=== PATIENT | female | born 1950 | race Caucasian/White ===

== ENCOUNTER 2025-08-03 11:03 | Outpatient (RCR) | payer MEDICARE, SELFPAY | END 2025-08-03 11:38 | disposition home or self-care (01) | LOC: HO.PT 11:03 | PROVIDERS: PCP Nurse Practitioner Adult Health; Visit Provider Nurse Practitioner Adult Health | DX: N94.10 Unspecified dyspareunia (principal); N95.2 Postmenopausal atrophic vaginitis | CPT/HCPCS: 97112; 97140; 97162 ==

== ENCOUNTER 2025-11-08 15:08 | Outpatient (AMB) | payer MEDICARE, SELFPAY ==
--- NOTE | 2025-11-08 15:21 | A.OFFPC_ITS ---
Vital Signs 11/08/25 15:24 Height 5 ft 4 in Weight 120 lb 2 oz BMI 20.6 BP 130/64 Blood Pressure Location Lt brachial Position Sitting Pulse 77 Pulse Source Pulse Oximeter Temp 97.5 F Temp Source Temporal Artery Scan Pulse Oximetry (%) 98 Oxygen Delivery Method Room Air Intake Visit Reasons: High Cholesterol/ Pace Maker Accompanied by: Spouse Allergies sulfamethoxazole (From Bactrim) Allergy (Intermediate, Verified 11/08/25 15:25) Rash trimethoprim (From Bactrim) Allergy (Intermediate, Verified 11/08/25 15:25) Rash Medication List - Last Reconciled 11/08/25 by Elina Juarez MD verapamil ER 240 mg PO DAILY Tobacco use date assessed: 11/08/25 Fall risk assessment: 1 Fall in past year Last assessed Fall Risk: 11/08/25 Dental Screening Dental Screen Date: 11/08/25 Did you have a dental visit in the last 12 months?: Yes Did you have a dental problem in the last 6 months where you did not have access to dental care?: No Was dental information given to patient?: Patient has dentist HPI HPI Comments History of Present Illness Details Patient is a 75-year-old female, accompanied by her presenting to on license of [facility] care. The patient reports a history of osteoporosis and previously took strontium, but she discontinued it due to concerns about its recommendations. She has an aversion to other osteoporosis medications like Boniva and Fosamax. Her last DEXA scan was in 2021. She reports being physically active with heavy lifting and weight-bearing exercise, and she has had two falls on ice in the past year without any fractures. Her cardiac history is significant for an pacemaker, which was originally placed in November 2011 and recently replaced. 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 She reports some shortness of breath, which she attributes to anxiety, and denies chest pain. Her mother also had aortic stenosis requiring open-chest surgery. The patient reports a history of hyperlipidemia, with a total cholesterol of 260 a year ago that has since improved to 214 without medication. Blood work from September revealed an LDL of 114 and a high HDL of 91. She has a history of migraines, for which she takes verapamil daily for prevention. She has a history of smoking for 10 years and quit at age 23. She reports reflux managed with as-needed antacids. The patient reports ongoing fatigue and feeling overwhelmed due to significant personal stressors, including her 's medical and cognitive issues and her sister's health problems. She endorses feeling down, loss of interest, and trouble sleeping. Her current supplements include calcium, vitamin D 1000 IU, active B complex, glucosamine, L-tyrosine, and magnesium. She is up-to-date on her flu, pneumonia, and shingles vaccinations, with her last COVID-19 vaccine received in 2022. [facility] Surgical History (Updated 11/08/25 @ 16:37 by Elina Juarez MD) H/O section Family History (Updated 11/08/25 @ 15:29 by Radha Toth CMA) Mother Hypertension Sister Breast cancer Hypertension Mental health disorder Substance use Social History (Updated 11/08/25 @ 15:26 by Radha Toth CMA) Household Members: Spouse Housing: House Alcohol intake: never Patient Tobacco Use Status: Former Tobacco user e-Cigarette/Vaping Use: Never Used service: No Current occupational status: retired Cognitive needs: No Hearing needs: No Vision needs: Yes Questionnaire PHQ-9 Over the last 2 weeks, how often have you been bothered by any of the following problems? 1. Little interest or pleasure in doing things: several days 2. Feeling down, depressed, or hopeless: several days 3. Trouble falling or staying asleep, or sleeping too much: several days 4. Feeling tired or having little energy: several days 5. Poor appetite or overeating: not at all 6. Feeling bad about yourself - or that you are a failure or have let yourself or your family down: several days 7. Trouble concentrating on things, such as reading the newspaper or watching television: not at all 8. Moving or speaking so slowly that other people could have noticed. Or the opposite - being so fidgety or restless that you have been moving around a lot more than usual: not at all 9. Thoughts that you would be better off or of hurting yourself in some way: not at all Total score: 5 Depression Screening Interpretation: Positive Depression Screening Done: Yes 40527 - PHQ-9 Billing: Yes Source: Developed by Drs. Hayden Morrow, Yobany Carter and colleagues, with an educational flaca from [employer]. Thrive Questionnaire Date Thrive assessed: 11/08/25 I am a: Patient What is your living situation today?: I have a steady place to live Within the past 12 months, did the food you bought not last and you didn't have the money to get more?: Never true Within the past 12 months, did you worry whether your food would run out before you got money to buy more?: Never true Do you have trouble paying for medicines?: No Do you have trouble getting transportation to medical appointments?: No Do you have trouble paying your heating and electricity bill?: No Do you have trouble taking care of your child, family member or friend?: No Do you have trouble with day-to-day activities such as bathing, preparing meals, shopping, managing finances, etc.?: No Are you currently unemployed and looking for a job?: No Are you interested in more education?: No Please select the resources that you would like help with: None Currently or been in a relationship where the following occur: No concerns reported THRIVE Score: 0 AUDIT C Alcohol Use Questionnaire (AUDIT-C) 1. How often do you have a drink containing alcohol?: Never 3. How often do you have six or more drinks on one occasion?: Never Total Score: 0 COURTNEY-7 AMB Questionnaire COURTNEY-7 Date COURTNEY - 7 assessed: 11/08/25 Feeling nervous, anxious, or on edge: 1 = Several days Not being able to stop or control worryin = Several days Worrying too much about different things: 1 = Several days Trouble relaxin = Several days Being so restless that it is hard to sit still: 1 = Several days Becoming easily annoyed or irritable: 1 = Several days Feeling afraid as if something awful might happen: 1 = Several days Total COURTNEY-7 score (0-4 normal; 5-9 mild; 10-14 moderate; 15-21 severe): 7 Source: Developed by Drs. Hayden Morrow, Yobany Carter and colleagues, with an educational flaca from [employer]. COURTNEY-7 Assessment Billing COURTNEY-7 Assessment Tool: COURTNEY-7 Assessment 35888 Physical exam (Primary Care) Vital Signs: Last Vital Signs Temp 97.5 F 11/08/25 15:24 Pulse 77 11/08/25 15:24 BP 130/64 11/08/25 15:24 Pulse Ox 98 11/08/25 15:24 Oxygen Delivery Method Room Air 11/08/25 15:24 General: Well-appearing, alert, oriented ?3, in no acute distress. HEENT: Normocephalic, atraumatic, PERRLA, EOMI, no scleral icterus. Nares patent, normal mucosa pink, no discharge. No oral lesions, or pharyngeal erythema. Neck Supple. Cardiovascular: Regular rate and rhythm, S1-S2 appreciated, systolic murmur appreciated at right 2nd intercostal space, radiating to carotids. Pacemaker noted in the right chest. Respiratory: Lungs clear to auscultation bilaterally, no wheezes, rales or rhonchi. Abdomen: Soft, nontender, nondistended. Normoactive bowel sounds. BMI result Body Mass Index 20.6 Tobacco/Smoking Status: Tobacco use Status Tobacco use date assessed 11/08/25 11/08/25 15:31 Patient Tobacco Use Status Former Tobacco user 11/08/25 15:31 e-Cigarette/Vaping Use Never Used 11/08/25 15:31 PHQ-9: PHQ-9 Score PHQ-9: Total score 5 11/08/25 15:31 Depression Screening Interpretation: Positive Thrive Assessment: Date of Thrive Assessment Date Thrive assessed 11/08/25 11/08/25 15:31 Currently or been in a relationship where the following occur: No concerns reported Coding Level of Care Code New Pt Level 4 (28499) Diagnoses Osteoporosis without current pathological fracture, unspecified osteoporosis type M81.0 Osteoporosis type: unspecified Presence of current pathological fracture: without current pathological fracture Migraine without status migrainosus, not intractable, unspecified migraine type G43.909 Migraine type: unspecified Status migrainosus presence: without status migrainosus Intractability: not intractable Aortic valve stenosis, etiology of cardiac valve disease unspecified I35.0 Cardiac valve disease etiology: etiology unspecified Anxiety F41.9 Additional Codes COURTNEY-7 Assessment Billing - COURTNEY-7 Assessment Tool: COURTNEY-7 Assessment 32633 ([id number]) PHQ-9 - 71993 - PHQ-9 Billing: Yes ([id number]) Assessment & Plan Assessment & Plan (1) Osteoporosis: Code(s): M81.0 - Age-related osteoporosis without current pathological fracture Category: Medical Qualifiers: Osteoporosis type: unspecified Presence of current pathological fractur e: without current pathological fracture Qualified Code(s): M81.0 - Age-related osteoporosis without current pathological fracture Plan: Patient reports previously took strontium, but she discontinued it due to concerns about recommendation. She is not interested in medications at this time. Reports she is taking calcium 1200 mg and vitamin-D 1000 units daily. She reports being physically active with heavy lifting and weight-bearing exercise. Her last DEXA scan was in 2021. Repeat DEXA scan (2) Migraine: Code(s): G43.909 - Migraine, unspecified, not intractable, without status migrainosus Category: Medical Qualifiers: Migraine type: unspecified Status migrainosus presence: without status migrainosus Intractability: not intractable Qualified Code(s): G43.909 - Migraine, unspecified, not intractable, without status migrainosus Plan: On verapamil 240 daily for prophylaxis (3) Aortic stenosis: Code(s): I35.0 - Nonrheumatic aortic (valve) stenosis Category: Medical Qualifiers: Cardiac valve disease etiology: etiology unspecified Qualified Code(s): I35.0 - Nonrheumatic aortic (valve) stenosis Plan: Patient has a history of aortic stenosis, follows with puppet maker in [place]. Reportedly had a recent echocardiogram with a plan to repeat it in February 2026, and reports she was told she may need surgery. (4) Anxiety: Code(s): F41.9 - Anxiety disorder, unspecified Category: Medical Plan: The patient reports significant psychosocial stressors contributing to symptoms of anxiety, depressed mood, and fatigue. She has declined pharmacotherapy at this time. She is interested in therapy, referral provided. Orders: Orders Complete Blood Count Auto Diff Today Z00.00 - Encounter for general adult medical examination without abnormal findings Hemoglobin A1c Today Z13.1 - Encounter for screening for diabetes mellitus Hepatitis C Antibody Today Z11.59 - Encounter for screening for other viral diseases Ferritin Today R53.83 - Other fatigue XR DEXA axial skeleton Today M81.0 - Age-related osteoporosis without current pathological fracture Comprehensive Met. Panel Today Z00.00 - Encounter for general adult medical examination without abnormal findings Vitamin D 25-OH (D2 and D3) Today Z13.21 - Encounter for screening for nutritional disorder IRON PROFILE Today R53.83 - Other fatigue Referrals Counseling Referral F32.A - Depression, unspecified, F41.9 - Anxiety disorder, unspecified
[2025-11-08 15:24] VITALS: BP 130/64; PULSE 77; TEMP 36.4; O2SAT 98; BMI 20.6
--- OUTSIDE RECORDS SUMMARY | 2025-11-08 17:23 | XMS_ITS | Encounter Summary ---
Author Organization [facility] Address [address] [place] [address] [place] [phone] Phone Care Team Providers Care Svp Programmatic Tv Name Role Phone Alex Dorman MD Unavailable Christa Barros NP Unavailable [phone] Maryanne Gresham Unavailable [email or web address] Anahy Cisneros BUSHEL WORKER Unavailable [phone] Ambrosio Navas MD Unavailable [phone] Leonel Haider RUBBER TESTER Unavailable Yancy Rees MD Unavailable [phone] Rambo Perez MD Unavailable [phone] Christa Barros NP Primary Care Provider + Ambrosio Navas MD Unavailable [phone] Ambrosio Navas MD Primary Care Provider [phone] Unknown, Unknown Primary Care Provider UnaChrista Sheppard NP Primary Care Provider + Christa Barros NP Primary Care Provider + Encounter Details Date Type Department Care Team (Late st Contact Info) Description 05/03/2020 Ancillary Orders [facility] [address] [place] [address] Alex Dorman MD [address] [place] [address] [email or web address] Syncope and collapse Social History Tobacco Use Types Packs/Day Years Used Date Smoking Tobacco: Former Smokeless Tobacco: Former Comments:Quit at age 23. Alcohol Use Standard Drinks/Week Comments Yes 4 (1 standard drink = 0.6 oz pur e alcohol) Comments No Sex and Gender Information Value Date Recorded Sex Assigned at Female 08/18/2020 12:21 PM EDT Legal Sex Female 5:37 PM EST Gender Identity Female 08/18/2020 12:21 PM EDT Sexual Orientation Don't know 08/25/2024 12 :10 PM EDT documented as of this encounter Plan of Treatment Upcoming Encounters Date Type Department Care Team (Late st Contact Info) Description 10/05/2025 Procedure Pass [facility] [address] [place] [address] 02/14/2026 1:45 PM EDT Appointment [facility] [address] [place] [address] Taz Nair MD [address] [place] [phone] [email or web address] 03/16/2026 11:40 AM EDT Office Visit [facility] [address] [place] [address] [address] Floor, [address] [place] [address] Taz Nair MD [address] [place] [address] documented as of this encounter Results * DEVICE CHECK: PPM IN-HOME INTERROGATION (08/18/2020 2:55 PM EDT) Narrative Alex Dorman MD - 08/19/2020 4:12 PM EDT Reason for appointment: Remote pacemaker interrogation HPI: Routine 3 month remote pacemaker interrogation. No device related complaints. Indication for device: Syncope. Examination: Device type: Pacemaker Airport Screener: [employer] Mode: DDDR LRL/UPL: 50/150 bpm Mode switches: 13 brief, < 1 min in duration High V rates: 2 brief AT Thresholds, impedances, and sensing stable. Atrial pacin.8% Ventricular pacin% Battery: 3 yrs Additional comments: Device functioning appropriately. Patient presented to [facility] today for c/o tachycardia, no events since May noted Normal device function. Patient to follow-up for continued monitoring every 3 months. Report prepared by Fly Atkins RN us Alex Dorman MD [facility] ORDER MALIKA Final Result documented in this encounter Visit Diagnoses Diagnosis Syncope and collapse Syncope and collapse documented in this encounter Additional Health Concerns Infection Onset Date Last Indicated Resolved Time CoV-Risk 06/27/2020 06/27/2020 07/11/2020 1:24 AM EDT CoV-Risk 03/16/2025 03/16/2025 03/27/2025 1:21 AM EDT documented as of this encounter Care Teams Svp Programmatic Tv Relationship Specialty Start Date End Date Christa Barros NP [address] [place] [address] PCP - General Internal Medicine 10/24/18 06/19/21 Ambrosio Navas MD [address] [place] [phone] PCP - General Internal Medicine 06/20/21 01/29/22 Unknown, Nam, PCP - General 01/30/22 01/06/24 Christa Barros NP [address] [place] [address] PCP - General Internal Medicine 01/07/24 02/15/25 Christa Barros, RASHAWN [address] [place] [address] [place] [phone] [email or web address] PCP - General Nurse Practitioner 02/16/25 Alex Dorman MD [email or web address] Historical LMR Provider 08/27/17 Christa Barros RUBBER TESTER [address] [place] [address] [place] [phone] [email or web address] Primary Care Physician 01/07/24 02/15/25 Maryanne Gresham PA [email or web address] Historical LMR Provider 08/27/17 11/18/21 Anahy Cisneros, JULIANNA [address] [place] [address] [place] [address] [email or web address] Historical LMR Provider 08/27/17 4 Ambrosio Navas MD [address] [place] [address] [place] [phone] [email or web address] Historical LMR Provider 08/27/17 4 Leonel Haider NP [address] [place] [address] [address] [place] [phone] Historical LMR Provider 08/27/17 2 Yancy Rees MD [address] [place] [address] Historical LMR Provider 08/27/17 2 Rambo Perez MD [address] [place] [address] Historical LMR Provider 08/27/17 Ambrosio Navas MD [address] [place] [address] [address] [place] [address] [email or web address] Insurance Assigned Provider Internal Medicine 09/30/19 01/06/24 documented as of this encounter Additional Source Comments The information contained in this document represents components of the legal health record. It is not the complete legal health record.[facility]
--- OUTSIDE RECORDS SUMMARY | 2025-11-08 17:23 | XMS_ITS | Encounter Summary ---
Author Organization [facility] Address [address] [place] [address] [place] [phone] Phone Care Team Providers Care Heavy Equipment Rental Manager Name Role Phone Ambrosio Navas MD Primary Care Provider [phone] Alex Dorman MD Unavailable [phone] Christa Barros NP Unavailable [phone] Maryanne Gresham [email or web address] Anahy Cisneros ACCOUNTING TEACHER Unavailable +[phone] Ambrosio Navas MD Unavailable +[phone] Leonel Haider MOSAIC TECHNICIAN Unavailable [phone] Yancy Rees MD Unavailable [phone] Rambo Perez MD Unavailable [phone] Christa Barros NP Primary Care Provider + Ambrosio Navas MD Unavailable [phone] Ambrosio Navas MD Primary Care Provider +[phone]- Unknown, Unknown Primary Care Provider Unavai Christa Phillips NP Primary Care Provider + Christa Barros NP Primary Care Provider + Encounter Details Date Type Department Care Team (Late Contact Info) Description 01/29/2018 Ancillary Orders [facility] [address] [facility] [address] [place] [address] Ambrosio Navas MD [address] [facility] [address] [place] [address] [email or web address] Breast screening Social History Tobacco Use Types Packs/Day Years Used Date Smoking Tobacco: Former Smokeless Tobacco: Former Comments:Quit at age 23. Alcohol Use Standard Drinks/Week Comments Yes 4 (1 standard drink = 0.6 oz pur e alcohol) Comments Unknown Sex and Gender Information Value Date Recorded [...] Procedure Pass [facility] [address] [place] [address] 02/14/2026 1:45 PM EDT Appointment [facility] [address] [place] [address] Taz Nair MD [address] [place] [address] 03/16/2026 11:40 AM EDT Office Visit [facility] [address], [address] [place] [address] Taz Nair MD [address] [place] [phone] documented as of this encounter Results * BI MAMMOGRAM SCREENING WITH TOMOSYNTHESIS WITH CAD (BILATERAL) (02/05/2018 2:14 PM EDT) Anatomical Region Laterality Modality Breast Left, Breast Right, Breast Bilateral Bila teral Mammography 02/05/2018 2:56 PM EDT Impressions 02/05/2018 3:01 PM EDT No findings suspicious for malignancy. In the absence of a worrisome palpable abnormality, annual screening mammography is recommended. BI-RADS CATEGORY: 2 - Benign finding. DENSITY: The breast tissue is heterogeneously dense, an appearance which lowers the sensitivity of mammography. POS [facility] Narrative 02/05/2018 3:01 PM EDT COMPARISON: 09/28/2013 through 07/23/2016. Bilateral 3-D tomosynthesis with 2-D reconstructions in the CC and MLO projection of each breast was obtained. Computer-aided detection system also utilized. No new mass, asymmetry, architectural distortion or suspicious calcifications have become apparent on either side. Chronic scattered calcifications unchanged as is limited evaluation of the deep right upper outer quadrant due to pacemaker. Procedure Note Taz Brian MD - 02/05/2018 COMPARISON: 09/28/2013 through 07/23/2016. Bilateral 3-D tomosynthesis with 2-D reconstructions in the CC and MLOprojection of each breast was obtained. Computer-aided detection systemalso utilized. No new mass, asymmetry, architectural distortion or suspiciouscalcifications have become apparent on either side. Chronic scattered calcifications unchanged as is limited evaluation ofthe deep right upper outer quadrant due to pacemaker. IMPRESSION: No findings suspicious for malignancy. In the absence of a worrisomepalpable abnormality, annual screening mammography is recommended. BI-RADS CATEGORY: 2 - Benign finding. DENSITY: The breast tissue is heterogeneously dense, an appearance whichlowers the sensitivity of mammography. POS [facility] Ambrosio Navas MD IMG MG EXAMS Final Result documented in this encounter Visit Diagnoses Diagnosis Breast screening Breast screening, unspecified Breast screening Breast screening, unspecified documented in this encounter Additional Health Concerns Infection Onset Date Last Indicated Resolved Time CoV-Risk 06/27/2020 06/27/2020 07/11/2020 1:24 AM EDT CoV-Risk 03/16/2025 03/16/2025 03/27/2025 1:21 AM EDT documented as of this encounter Care Teams Heavy Equipment Rental Manager Relationship Specialty Start Date End Date Ambrosio Navas MD [address] [place] [phone] [email or web address] PCP - General 08/26/17 10/23/18 Christa Barros NP [address] [place] [phone] [email or web address] PCP - General Internal Medicine 10/24/18 06/19/21 Ambrosio Navas MD [address] [place] [phone] [email or web address] PCP - General Internal Medicine 06/20/21 01/29/22 Unknown, Unknown, PCP - General 01/30/22 01/06/24 Christa Barros NP [address] [place] [phone] [email or web address] PCP - General Internal Medicine 01/07/24 02/15/25 Christa Barros NP [address] [place] [phone] [email or web address] PCP - General Nurse Practitioner 02/16/25 Alex Dorman MD [address] [place] [phone] [email or web address] Historical LMR Provider 08/27/17 Christa Barros NP [address] [place] [address] [place] [phone] [email or web address] Primary Care Physician 01/07/24 02/15/25 Maryanne Gresham PA Historical LMR Provider 08/27/17 11/18/21 Anahy Cisneros CNP [address] [place] [address] [place] [phone] [email or web address] Historical LMR Provider 08/27/17 4 Ambrosio Navas MD [address] [place] [phone] [email or web address] Historical LMR Provider 08/27/17 4 Leonel Haider NP [address] [place] [phone] Historical LMR Provider 08/27/17 2 Yancy Rees MD [address] [place] [address] Historical LMR Provider 08/27/17 2 Rambo Perez MD [address] [place] [address] Historical LMR Provider 08/27/17 Ambrosio Navas MD [address] [place] [phone] [email or web address] Insurance Assigned Provider Internal Medicine 09/30/19 01/06/24 documented as of this encounter Additional Source Comments The information contained in this document represents components of the legal health record. It is not the complete legal health record.[facility]
--- OUTSIDE RECORDS SUMMARY | 2025-11-08 17:23 | XMS_ITS | Encounter Summary ---
Author Organization [facility] Address [address] [place] [address] [place] [address] Phone Care Team Providers Care Fish Processor Name Role Phone Ambrosio Navas MD Primary Care Provider +1- Alex Dorman MD Unavailable [phone] Christa Barros NP Unavailable [phone] Maryanne Gresham Unavailable [email or web address] Anahy Cisneros PROFESSOR OF THEATRE Unavailable +1- Ambrosio Navas MD Unavailable +[phone] Leonel Haider CDL PROGRAM COORDINATOR Unavailable [phone] Yancy Rees MD Unavailable [phone] Rambo Perez MD Unavailable [phone] Christa Barros NP Primary Care Provider + Ambrosio Navas MD Unavailable +[phone] Ambrosio Navas MD Primary Care Provider +1- Unknown, Unknown Primary Care Provider Unavai Christa Phillips NP Primary Care Provider + Christa Barros NP Primary Care Provider + Reason for Referral * MRI/CAT Scan - Closed Specialty Diagnoses / Procedures Referred By Nba t Referred To Contact Radiology Diagnoses Chest pain, unspecified type Procedures NC Myocardial Perfusion Stress Single NC Myocardial Perfusion Pharmacologic Stress Multiple Leonel Haider NP Phone: tel: fax: Referral ID Status Reason Start Date Expiration Date Visits Re quested Visits Authorized [id number] Closed 12/12/2017 02/09/2018 1 1 Encounter Details Date Type Department Care Team (Latest Contact Info) Description 12/13/2017 Ancillary Orders [facility] [address] Floor, [address] [place] [address] Leonel Haider NP [address] [place] [address] [phone] Chest pain, unspecified type Social History Tobacco Use Types Packs/Day Years Used Date Smoking Tobacco: Never Assessed Comments Unknown Sex and Gender Information Value [...] 10/05/2025 Procedure Pass [facility] [address] [address] [place] [address] 02/14/2026 1:45 PM EDT Appointment [facility] [address] [address] Taz Nair MD [address] [place] [address] 03/16/2026 11:40 AM EDT Office Visit [facility] [address] Floor, [address] [place] [address] Taz Nair MD [address] [place] [address] [email or web address] documented as of this encounter Results * NC Myocardial Perfusion Stress Single (12/13/2017 11:31 AM EST) Anatomical Region Laterality Modality Heart Ultrasound Narrative 12/23/2017 3:33 PM EST Normal study. There is no evidence of myocardial infarction or ischemia. Normal LV size and function with no regional wall motion abnormalities. Very low likelihood of hemodynamically significant coronary artery disease. Low risk study for myocardial events or cardiac in the next two years. Study Quality Overall image quality is good. There are no artifacts present. NC Study Impression Left ventricular perfusion is normal. Interpretation of the study indicates that it is normal. This is a low risk study. There is no prior study for comparison. Stress Test Result REGADENOSON Exercise Stress Test Report: Reason for termination: Protocol complete Summary: Resting ECG: V-Paced HR 72 with underlying rhythm of SR with LBBB Functional capacity: Not assessed Heart rate response to exercise: Not assessed Blood pressure response to exercise: Hypertensive Chest pain:None Arrhythmias:None ST-T changes:None Overall impression: Abnormal stress test Conclusion: Pharmacologic stress test. Patient unable to complete test on TM due dizziness and request to stop. The patient was infused with 0.4 mg of Regadenoson (Lexiscan) intravenously over 10 seconds followed immediately by the injection of the Tc99m Sestamibi. Patient tolerated Lexiscan infusion without complications. Test terminated due to completion of protocol. Summary: 1. EKG: No EKG changes suggestive of ischemia 2. Symptoms: No chest pain or symptoms concerning for angina. Pt with symptoms of dizziness 3. Exercise physiology: Pt was able to exercise a total of 5:11 minutes reaching a max bp of 200/80 from baseline 150/70. 4. Arrhythmia: None Conclusion: Abnormal pharmacologic stress test. No ischemic EKG changes from baseline with pharmacologic protocol. The patient was converted over to Lexiscan protocol after beginning routine exercise test, noted to be hypertensive, feeling dizzy and requesting to stop. She has been set up to follow up in the pacemaker clinic and will follow up in the office for HTN. Patient hemodynamically stable at completion of exam. Nuclear image results pending. EKG reviewed with Dr. López. Tiffanie Rutherford NP Nuclear Cardiology Measurements End systolic (mL): 16 End diastolic (mL): 64 Ejection Fraction (%): 75 Ejection Fraction: Hyperdynamic (>70%) The left ventrical is functioning with normal perfusion quality. Patient was injected with 12.1mCi of Tc99m Sestamibi Lt AC IV during stress NC Conclusion Normal study. There is no evidence of myocardial infarction or ischemia. Normal LV size and function with no regional wall motion abnormalities. Very low likelihood of hemodynamically significant coronary artery disease. Low risk study for myocardial events or cardiac in the next two years. Perfusion Scoring Stress Summed Score: 0 Percent Normal: 0.00% The left ventricular perfusion is normal. Leonel Haider NP CV NM CARDIAC Final Result documented in this encounter Visit Diagnoses Diagnosis Chest pain, unspecified type Chest pain, unspecified type documented in this encounter Additional Health Concerns Infection Onset Date Last Indicated Resolved Time CoV-Risk 06/27/2020 06/27/2020 07/11/2020 1:24 AM EDT CoV-Risk 03/16/2025 03/16/2025 03/27/2025 1:21 AM EDT documented as of this encounter Care Teams Fish Processor Relationship Specialty Start Date End Date Ambrosio Navas MD [address] [place] [address] [place] [address] [email or web address] PCP - General 08/26/17 10/23/18 Christa Barros NP [address] [place] [address] [place] [address] PCP - General Internal Medicine 10/24/18 06/19/21 Ambrosio Navas MD [address] [place] [address] [place] [address] PCP - General Internal Medicine 06/20/21 01/29/22 Unknown, Unknown, PCP - General 01/30/22 01/06/24 Christa Barros NP [address] [place] [address] [email or web address] PCP - General Internal Medicine 01/07/24 02/15/25 Christa Barros NP [address] [place] [address] [email or web address] PCP - General Nurse Practitioner 02/16/25 Alex Dorman MD [address] [place] [address] [email or web address] Historical LMR Provider 08/27/17 Christa Barros NP [address] [place] [address] [email or web address] Primary Care Physician 01/07/24 02/15/25 Maryanne Gresham PA Historical LMR Provider 08/27/17 11/18/21 Anahy Cisneros CNP [address] [place] [address] [email or web address] Historical LMR Provider 08/27/17 4 Ambrosio Navas MD [address] [place] [address] [email or web address] Historical LMR Provider 08/27/17 4 Leonel Haider NP [address] [place] [address] [address] [place] [phone] Historical LMR Provider 08/27/17 2 Yancy Rees MD [address] [place] [address] Historical LMR Provider 08/27/17 2 Rambo Perez MD [address] [place] [address] Historical LMR Provider 08/27/17 Ambrosio Navas MD [address] [place] [address] [address] [place] [address] [email or web address] Insurance Assigned Provider Internal Medicine 09/30/19 01/06/24 documented as of this encounter Additional Source Comments The information contained in this document represents components of the legal health record. It is not the complete legal health record.[facility]
--- OUTSIDE RECORDS SUMMARY | 2025-11-08 17:23 | XMS_ITS | Encounter Summary ---
Author Organization [facility] Address [address] [facility] [address] [place] [address] Phone Care Team Providers Care Corporate Tutor Name Role Phone Alex Dorman MD Unavailable Christa Barros NP Unavailable [phone] Maryanne Gresham Unavailable [email or web address] Anahy Cisneros MANAGER FRAUD Unavailable [phone] Ambrosio Navas MD Unavailable +[phone] Leonel Haider REFINERY OPERATOR GAS PLANT Unavailable [phone] Yancy Rees MD Unavailable [phone] Rambo Perez MD Unavailable Christa Barros NP Primary Care Provider + Ambrosio Navas MD Unavailable +[phone] Ambrosio Navas MD Primary Care Provider [phone] Unknown, Unknown Primary Care Provider UnaChrista Sheppard NP Primary Care Provider + Christa Barros NP Primary Care Provider + Encounter Details Date Type Department Care Team (Late st Contact Info) Description 02/21/[address] [facility] [address] [facility] [address] [place] [address] Christa Barros, RASHAWN 14 [facility] [address] [place] [address] [email or web address] Breast screening Social History Tobacco Use Types Packs/Day Years Used Date Smoking Tobacco: Former Smokeless Tobacco: Former Comments:Quit at age 23. Alcohol Use Standard Drinks/Week Comments Yes 4 (1 standard drink = 0.6 oz pur e alcohol) one drink nightly Comments No Sex and Gender Information Value [...] Pass [facility] [address] [place] [address] 02/14/2026 1:45 PM EDT Appointment [facility] [place] [id number] Taz Nair MD [address] [place] [address] 03/16/2026 11:40 AM EDT Office Visit [facility] [address], [address] [place] [address] Taz Nair MD [address] [place] [address] documented as of this encounter Results * BI MAMMOGRAM SCREENING WITH TOMOSYNTHESIS WITH CAD (BILATERAL) (03/22/2021 12:05 PM EDT) Anatomical Region Laterality Modality Breast Left, Breast Right, Breast Bilateral Bila teral Mammography 03/22/2021 12:1 8 PM EDT Impressions 03/22/2021 12:21 PM EDT BILATERAL BREASTS: Negative, no evidence of malignancy. Normal interval follow- up is recommended in 12 months. Bi-RADS: BI-RADS CATEGORY: 1 - Negative. DENSITY: The breast tissue is heterogeneously dense, which could obscure a lesion on mammography. Narrative 03/22/2021 12:21 PM EDT STUDY: Bilateral screening mammography with tomosynthesis and CAD TECHNIQUE: Bilateral full-field digital screening mammography is obtained and read in conjunction with computer-aided detection. Tomosynthesis as well as 2-D C view imaging were obtained. COMPARISON: Comparison made to multiple prior, most recent February 11, 2019, and most remote September 28, 2013. BREAST COMPOSITION: The breast tissue is heterogeneously dense, which may obscure small masses. RIGHT BREAST: Pacemaker battery limits local evaluation. No significant masses, suspicious calcifications or other abnormalities are seen. LEFT BREAST: No significant masses, suspicious calcifications or other abnormalities are seen. Procedure Note Rudi Daniel MD - 03/22/2021 STUDY: Bilateral screening mammography with tomosynthesis and CAD TECHNIQUE: Bilateral full-field digital screening mammography is obtainedand read in conjunction with computer-aided detection. Tomosynthesis aswell as 2-D C view imaging were obtained. COMPARISON: Comparison made to multiple prior, most recent February 11, 2019,and most remote September 28, 2013. BREAST COMPOSITION: The breast tissue is heterogeneously dense, which mayobscure small masses. RIGHT BREAST: Pacemaker battery limits local evaluation. No significantmasses, suspicious calcifications or other abnormalities are seen. LEFT BREAST: No significant masses, suspicious calcifications or otherabnormalities are seen. IMPRESSION: BILATERAL BREASTS: Negative, no evidence of malignancy. Normal intervalfollow-up is recommended in 12 months. Bi-RADS: BI-RADS CATEGORY: 1 - Negative. DENSITY: The breast tissue is heterogeneously dense, which could obscurea lesion on mammography. Christa Barros REFINERY OPERATOR GAS PLANT IMG MG EXAMS Final Resu lt documented in this encounter Visit Diagnoses Diagnosis Breast screening Breast screening, unspecified Breast screening Breast screening, unspecified documented in this encounter Additional Health Concerns Infection Onset Date Last Indicated Resolved Time CoV-Risk 03/16/2025 03/16/2025 03/27/2025 1:21 AM EDT documented as of this encounter Care Teams Corporate Tutor Relationship Specialty Start Date End Date Christa Barros NP [address] [place] [address] [email or web address] PCP - General Internal Medicine 10/24/18 06/19/21 Ambrosio Navas MD [address] [place] [address] [email or web address] PCP - General Internal Medicine 06/20/21 01/29/22 Unknown, Unknown, MD PCP - General 01/30/22 01/06/24 Christa Barros NP [address] [place] [address] [email or web address] PCP - General Internal Medicine 01/07/24 02/15/25 Christa Barros NP [address] [place] [address] [email or web address] PCP - General Nurse Practitioner 02/16/25 Alex Dorman MD [email or web address] Historical LMR Provider 08/27/17 Christa Barros NP [address] [place] [address] [email or web address] Primary Care Physician 01/07/24 02/15/25 Maryanne Gresham PA Historical LMR Provider 08/27/17 11/18/21 Anahy CisnerosJULIANNA [address] [facility] [address] [place] [address] Historical LMR Provider 08/27/17 4 Ambrosio Navas MD 14 [facility] [address] [place] [address] [email or web address] Historical LMR Provider 08/27/17 4 Leonel Haider, RASHAWN [address] [place] [address] [phone] Historical LMR Provider 08/27/17 2 Yancy Rees MD [address] [place] [address] Historical LMR Provider 08/27/17 2 Rambo Perez MD [address] [place] [address] Historical LMR Provider 08/27/17 Ambrosio Navas MD 14 [facility] [address] [place] [address] [email or web address] Insurance Assigned Provider Internal Medicine 09/30/19 01/06/24 documented as of this encounter Additional Source Comments The information contained in this document represents components of the legal health record. It is not the complete legal health record.[facility]
--- OUTSIDE RECORDS SUMMARY | 2025-11-08 17:23 | XMS_ITS | Encounter Summary ---
Author Organization [facility] Address [address] [place] [address] [place] [address] Phone Care Team Providers Care Freelance Court Stenographer Name Role Phone Ambrosio Navas MD Primary Care Provider +1 Alex Dorman MD Unavailable [phone] Christa Barros NP Unavailable [phone] Maryanne Gresham Unavailable [email or web address] Anahy Cisneros INDUSTRIAL SWEEPER CLEANER Unavailable +1- Ambrosio Navas MD Unavailable +[phone] Leonel Haider FISHER QUAHOG Unavailable [phone] Yancy Rees MD Unavailable [phone] Rambo Perez MD Unavailable [phone] Christa Barros NP Primary Care Provider + Ambrosio Navas MD Unavailable +[phone] Ambrosio Navas MD Primary Care Provider +1- Unknown, Unknown Primary Care Provider Unavai Christa Phillips NP Primary Care Provider + Christa Barros NP Primary Care Provider + Encounter Details Date Type Department Care Team (Late st Contact Info) Description 03/06/2018 Ancillary Orders [facility] [address] [place] [address] Alex Dorman MD [address] [place] [address] [email or web address] Social History Tobacco Use Types Packs/Day Years [...] Procedure Pass [facility] [address] [place] [address] 02/14/2026 1:45 PM EDT Appointment [facility] [address] [place] [address] Taz Nair MD [address] [place] [address] 03/16/2026 11:40 AM EDT Office Visit [facility] [address] [facility] 3rd Floor, [address] [place] [address] Taz Nair MD [address] [place] [address] documented as of this encounter Visit Diagnoses Not on filedocumented in this encounter Additional Health Concerns Infection Onset Date Last Indicated Resolved Time CoV-Risk 06/27/2020 06/27/2020 07/11/2020 1:24 AM EDT CoV-Risk 03/16/2025 03/16/2025 03/27/2025 1:21 AM EDT documented as of this encounter Care Teams Freelance Court Stenographer Relationship Specialty Start Date End Date Ambrosio Navas MD [address] [place] [address] [email or web address] PCP - General 08/26/17 10/23/18 Christa Barros NP [address] [place] [address] [email or web address] PCP - General Internal Medicine 10/24/18 06/19/21 Ambrosio Navas MD [address] [place] [address] [email or web address] PCP - General Internal Medicine 06/20/21 01/29/22 Unknown, Unknown, PCP - General 01/30/22 01/06/24 Christa Barros NP [address] [place] [address] [email or web address] PCP - General Internal Medicine 01/07/24 02/15/25 Christa Barros NP [address] [place] [address] [email or web address] PCP - General Nurse Practitioner 02/16/25 Alex Dorman MD [address] [place] [address] [email or web address] Historical LMR Provider 08/27/17 Christa Barros NP [address] [place] [address] [place] [address] [email or web address] Primary Care Physician 01/07/24 02/15/25 Maryanne Gresham PA Historical LMR Provider 08/27/17 11/18/21 Anahy Cisneros CNP [address] [place] [address] [place] [address] [email or web address] Historical LMR Provider 08/27/17 4 Ambrosio Navas MD [address] [place] [address] [email or web address] Historical LMR Provider 08/27/17 4 Leonel Haider, RASHAWN [address] [place] [address] [phone] Historical LMR Provider 08/27/17 2 Yancy Rees MD [address], [place] [address] Historical LMR Provider 08/27/17 2 Rambo Perez MD [address] [place] [address] Historical LMR Provider 08/27/17 Ambrosio Navas MD [address] [place] [address] [email or web address] Insurance Assigned Provider Internal Medicine 09/30/19 01/06/24 documented as of this encounter Additional Source Comments The information contained in this document represents components of the legal health record. It is not the complete legal health record.[facility]
--- OUTSIDE RECORDS SUMMARY | 2025-11-08 17:23 | XMS_ITS | Encounter Summary ---
Author Organization [facility] Address [address] [place] [address] [place] [address] Phone Care Team Providers Care Tool Filer Name Role Phone Alex Dorman MD Unavailable Christa Barros NP Unavailable [phone] Maryanne Gresham Unavailable [email or web address] Anahy Cisneros SOLAR ENERGY ENGINEER Unavailable [phone] Ambrosio Navas MD Unavailable +[phone] Leonel Haider DRUM SANDER Unavailable Yancy Rees MD Unavailable [phone] Rambo Perez MD Unavailable [phone] Christa Barros NP Primary Care Provider + Ambrosio Navas MD Unavailable +[phone] Ambrosio Navas MD Primary Care Provider +[phone] Unknown, Unknown Primary Care Provider UnaChrista Sheppard NP Primary Care Provider + Christa Barros NP Primary Care Provider + Encounter Details Date Type Department Care Team (Late st Contact Info) Description 02/21/2021 Procedure Pass [facility] [address] [place] [address] Social History Tobacco Use Types Packs/Day Years [...] st Contact Info) Description 10/05/2025 Procedure Pass [facility] [address] [place] [address] 02/14/2026 1:45 PM EDT Appointment [facility] [address] [place] [address] Taz Nair MD [address] [place] [address] [email or web address] 03/16/2026 11:40 AM EDT Office Visit [facility] [address] [place] [address] 3rd Floor, [address] [place] [address] Taz Nair MD [address] [place] [address] documented as of this encounter Visit Diagnoses Not on filedocumented in this encounter Additional Health Concerns Infection Onset Date Last Indicated Resolved Time CoV-Risk 03/16/2025 03/16/2025 03/27/2025 1:21 AM EDT documented as of this encounter Care Teams Tool Filer Relationship Specialty Start Date End Date Christa Barros NP [address] [place] [address] [address] [place] [address] PCP - General Internal Medicine 10/24/18 06/19/21 Ambrosio Navas MD [address] [place] [address] [email or web address] PCP - General Internal Medicine 06/20/21 01/29/22 Unknown, Nam, PCP - General 01/30/22 01/06/24 Christa Barros NP [address] [place] [address] [email or web address] PCP - General Internal Medicine 01/07/24 02/15/25 Christa Barros NP [address] [place] [address] [email or web address] PCP - General Nurse Practitioner 02/16/25 Alex Dorman MD [email or web address] Historical LMR Provider 08/27/17 Christa Barros NP [address] [place] [address] [email or web address] Primary Care Physician 01/07/24 02/15/25 Maryanne Gresham PA Historical LMR Provider 08/27/17 11/18/21 Anahy Cisneros CNP [address] [place] [address] [email or web address] Historical LMR Provider 08/27/17 4 Ambrosio Navas MD [address] [place] [address] [address] [place] [address] [email or web address] Historical LMR Provider 08/27/17 4 Leonel Haider NP [address] [place] [address] [address] [phone] Historical LMR Provider 08/27/17 2 Yancy Rees MD [address] [place] [address] Historical LMR Provider 08/27/17 2 Rambo Perez MD [address] [place] [address] Historical LMR Provider 08/27/17 Ambrosio Navas MD 14 [facility] [address] [place] [address] [email or web address] Insurance Assigned Provider Internal Medicine 09/30/19 01/06/24 documented as of this encounter Additional Source Comments The information contained in this document represents components of the legal health record. It is not the complete legal health record.[facility]
--- OUTSIDE RECORDS SUMMARY | 2025-11-08 17:23 | XMS_ITS | Encounter Summary ---
Author Organization [facility] Address [address] [place] [address] [place] [address] Phone Care Team Providers Care Ditcher Operator Name Role Phone Alex Dorman MD Unavailable Christa Barros NP Unavailable [phone] Maryanne Gresham Unavailable [email or web address] Anahy Cisneros SUPERVISOR [employer] Unavailable [phone] Ambrosio Navas MD Unavailable +[phone] Leonel Haider CLASSROOM MONITOR Unavailable Yancy Rees MD Unavailable [phone] Rambo Perez MD Unavailable [phone] Christa Barros NP Primary Care Provider + Ambrosio Navas MD Unavailable +[phone] Ambrosio Navas MD Primary Care Provider +[phone] Unknown, Unknown Primary Care Provider UnaChrista Sheppard NP Primary Care Provider + Christa Barros NP Primary Care Provider + Encounter Details Date Type Department Care Team (Late st Contact Info) Description 04/22/2020 Ancillary Orders [facility] [address] [place] [address] Alex Dorman MD [address] [place] [address] [email or web address] Complete heart block Social History Tobacco Use Types Packs/Day Years [...] Procedure Pass [facility] [address] [place] [address] 02/14/2026 1:45 PM EDT Appointment [facility] [address] [place] [address] Taz Nair MD [address] [place] [address] 03/16/2026 11:40 AM EDT Office Visit [facility] [address] [place] [address] 3rd Floor, [address] [place] [address] Taz Nair MD [address] [place] [address] documented as of this encounter Results * DEVICE CHECK: PPM REMOTE INTERROGATION WITH [employer]CK F[employer]ER REVIEW (04/22/2020 3:27 PM EDT) Narrative Alex Dorman MD - 04/27/2020 12:34 PM EDT Reason for appointment: Remote pacemaker interrogation HPI: Routine 3 month remote pacemaker interrogation. No device related complaints. Indication for device: CHB. Examination: Device type: Pacemaker Leader Assembler: [employer] Mode: DDDR LRL/UPL: 50/150 bpm Mode switches: 10 brief, < 1 min High V rates: 4 episode AT Thresholds, impedances, and sensing stable. Atrial pacin.4% Ventricular pacin.9% Battery: 3 yrs Additional comments: Device functioning appropriately. Normal device function. Patient to follow-up for continued monitoring every 3 months. Report prepared by Fly Atkins RN us Alex Dorman MD [facility] CARDIAC SERVICES ORDER MALIKA Final Result documented in this encounter Visit Diagnoses Diagnosis Complete heart block Atrioventricular block, complete Complete heart block Atrioventricular block, complete documented in this encounter Additional Health Concerns Infection Onset Date Last Indicated Resolved Time CoV-Risk 06/27/2020 06/27/2020 07/11/2020 1:24 AM EDT CoV-Risk 03/16/2025 03/16/2025 03/27/2025 1:21 AM EDT documented as of this encounter Care Teams Ditcher Operator Relationship Specialty Start Date End Date Christa Barros NP [address] [place] [address] [email or web address] PCP - General Internal Medicine 10/24/18 06/19/21 Ambrosio Navas MD [address] [place] [address] PCP - General Internal Medicine 06/20/21 01/29/22 Unknown, Nam, PCP - General 01/30/22 01/06/24 Christa Barros NP [address] [place] [address] PCP - General Internal Medicine 01/07/24 02/15/25 Christa Barros NP [address] [place] [address] [place] [address] [email or web address] PCP - General Nurse Practitioner 02/16/25 Alex Dorman MD [email or web address] Historical LMR Provider 08/27/17 Christa Barros NP [address] [place] [address] [email or web address] Primary Care Physician 01/07/24 02/15/25 Maryanne Gresham [email or web address] Historical LMR Provider 08/27/17 11/18/21 Anahy Cisneros CNP [address] [place] [address] [email or web address] Historical LMR Provider 08/27/17 4 Ambrosio Navas MD [address] [place] [address] [email or web address] Historical LMR Provider 08/27/17 4 Leonel Haider NP [address] [place] [address] [address] Historical LMR Provider 08/27/17 2 [facility] [place] [address] Historical LMR Provider 08/27/17 2 Rambo Perez MD [address] [place] [address] Historical LMR Provider 08/27/17 Ambrosio Navas MD [address] [place] [address] [address]65 [place] [address] [email or web address] Insurance Assigned Provider Internal Medicine 09/30/19 01/06/24 documented as of this encounter Additional Source Comments The information contained in this document represents components of the legal health record. It is not the complete legal health record.[facility]
--- OUTSIDE RECORDS SUMMARY | 2025-11-08 17:23 | XMS_ITS | Encounter Summary ---
Author Organization [facility] Address [address] [place] [address] [place] [address] Phone Care Team Providers Care Fund Director Name Role Phone Alex Dorman MD Unavailable Christa Barros NP Unavailable [phone] Maryanne Gresham Unavailable [email or web address] Anahy Cisneros ADDING MACHINE MECHANIC Unavailable [phone] Ambrosio Navas MD Unavailable +[address] ADVISOR Unavailable [phone] Yancy Rees MD Unavailable [phone] Rambo Perez MD Unavailable [phone] Ambrosio Navas MD Unavailable +[phone] Ambrosio Navas MD Primary Care Provider [phone] Unknown, Unknown Primary Care Provider Christa Houston NP Primary Care Provider + Christa Barros NP Primary Care Provider + Encounter Details Date Type Department Care Team (Late st Contact Info) Description 08/24/2021 Procedure Pass [facility], Ct Scan - [address] [address] Social History Tobacco Use Types Packs/Day Years [...] 10/05/2025 Procedure Pass [facility] [address] [place] [address] [place] [address] 02/14/2026 1:45 PM EDT Appointment [facility] [address] [place] [address] [place] [address] Taz Nair MD [address] [place] [address] [email or web address] 03/16/2026 11:40 AM EDT Office Visit [facility] [address] [place] [address] 3rd Floor, [address] [place] [address] Taz Nair MD [address] [place] [address] documented as of this encounter Visit Diagnoses Not on filedocumented in this encounter Additional Health Concerns Infection Onset Date Last Indicated Resolved Time CoV-Risk 03/16/2025 03/16/2025 03/27/2025 1:21 AM EDT documented as of this encounter Care Teams Fund Director Relationship Specialty Start Date End Date Ambrosio Navas MD [address] [place] [address] [address] [place] [address] PCP - General Internal Medicine 06/20/21 01/29/22 Unknown, Unknown, PCP - General 01/30/22 01/06/24 Christa Barros NP [address] [place] [address] [email or web address] PCP - General Internal Medicine 01/07/24 02/15/25 Christa Barros NP [address] [place] [address] [email or web address] PCP - General Nurse Practitioner 02/16/25 Alex Dorman MD [email or web address] Historical LMR Provider 08/27/17 Christa Barros NP [address] [place] [address] [email or web address] Primary Care Physician 01/07/24 02/15/25 Maryanne Gresham PA Historical LMR Provider 08/27/17 11/18/21 Anahy Cisneros, JULIANNA [address] [place] [address] [email or web address] Historical LMR Provider 08/27/17 Ambrosio Montiel MD [address] [place] [address] [email or web address] Historical LMR Provider 08/27/17 4 Leonel Haider NP [address] [place] [address] [address] [place], [place] [phone] Historical LMR Provider 08/27/17 2 Yancy Rees MD [address] [place] [address] Historical LMR Provider 08/27/17 2 Rambo Perez MD [address] [place] [address] Historical LMR Provider 08/27/17 Ambrosio Navas MD 14 [facility] 7[address] [place] [address] [email or web address] Insurance Assigned Provider Internal Medicine 09/30/19 01/06/24 documented as of this encounter Additional Source Comments The information contained in this document represents components of the legal health record. It is not the complete legal health record.[facility]
--- OUTSIDE RECORDS SUMMARY | 2025-11-08 17:23 | XMS_ITS | Encounter Summary ---
Author Organization [facility] Address [address] [place] [address] [place] [address] Phone Care Team Providers Care Rounding And Backing Machine Operator Name Role Phone Ambrosio Navas MD Primary Care Provider +1 Alex Dorman MD Unavailable [phone] Christa Barros NP Unavailable [phone] Maryanne Gresham Unavailable [email or web address] Anahy Cisneros VETERINARY RADIOLOGIST Unavailable +1- Ambrosio Navas MD Unavailable +[phone] Leonel Haider BRANCH SERVICES MANAGER Unavailable [phone] Yancy Rees MD Unavailable [phone] Rambo Perez MD Unavailable [phone] Christa Barros NP Primary Care Provider + Ambrosio Navas MD Unavailable +[phone] Ambrosio Navas MD Primary Care Provider +1- Unknown, Unknown Primary Care Provider Unavai Christa [place] NP Primary Care Provider + Christa Barros NP Primary Care Provider + Encounter Details Date Type Department Care Team (Late st Contact Info) Description 12/05/2017 Ancillary Orders [facility] [address] Floor, [address] [place] [address] Leonel Haider, BRANCH SERVICES MANAGER [address] [facility] [address] [place] [address] Social History Tobacco Use Types Packs/Day Years [...] Procedure Pass [facility] [place] [address] 02/14/2026 1:45 PM EDT Appointment [facility] [place] [address] Taz Nair MD [address] [place] [address] [email or web address] 03/16/2026 11:40 AM EDT Office Visit [facility] [address] Floor, [address] [place] [address] Taz Nair MD [address] [place] [address] documented as of this encounter Visit Diagnoses Not on filedocumented in this encounter Additional Health Concerns Infection Onset Date Last Indicated Resolved Time CoV-Risk 06/27/2020 06/27/2020 07/11/2020 1:24 AM EDT CoV-Risk 03/16/2025 03/16/2025 03/27/2025 1:21 AM EDT documented as of this encounter Care Teams Rounding And Backing Machine Operator Relationship Specialty Start Date End Date Ambrosio Navas MD [address] [place] [address] [email or web address] PCP - General 08/26/17 10/23/18 Christa Barros NP [address] [place] [address] [email or web address] PCP - General Internal Medicine 10/24/18 06/19/21 Ambrosio Navas MD [address] [place] [address] [email or web address] PCP - General Internal Medicine 06/20/21 01/29/22 Unknown, Nam, PCP - General 01/30/22 01/06/24 Christa Barros NP [address] [place] [place] [address] [email or web address] PCP - General Internal Medicine 01/07/24 02/15/25 Christa Barros NP [address] [place] [place] [address] [email or web address] PCP - General Nurse Practitioner 02/16/25 Alex Dorman MD [address] [place] [address] [email or web address] Historical LMR Provider 08/27/17 Christa Barros NP [address] [place] [address] [email or web address] Primary Care Physician 01/07/24 02/15/25 Maraynne Gresham PA Historical LMR Provider 08/27/17 11/18/21 Blayne Anahy HarpJULIANNA 14 [facility] [address] [place] [address] Historical LMR Provider 08/27/17 4 Ambrosio Navas MD 14 [facility] [address] [place] [address] [email or web address] Historical LMR Provider 08/27/17 4 Leonel Haider, RASHAWN [address] [place] [phone] Historical LMR Provider 08/27/17 2 Yancy Rees MD [address] [place] [address] Historical LMR Provider 08/27/17 2 Rambo Perez MD [address] [place] [address] Historical LMR Provider 08/27/17 Ambrosio Navas MD 14 [facility] [address] [place] [address] [email or web address] Insurance Assigned Provider Internal Medicine 09/30/19 01/06/24 documented as of this encounter Additional Source Comments The information contained in this document represents components of the legal health record. It is not the complete legal health record.[facility]
--- OUTSIDE RECORDS SUMMARY | 2025-11-08 17:23 | XMS_ITS | Encounter Summary ---
Author Organization [facility] Address [address] [place] [address] [place] [address] Phone Care Team Providers Care Cinder Pitman Name Role Phone Ambrosio Navas MD Primary Care Provider +1 Alex Dorman MD Unavailable [phone] Christa Barros NP Unavailable +[phone] Maryanne Gresham Unavailable [email or web address] Anahy Cisneros ACCOUNTS OFFICER Unavailable +1- Ambrosio Navas MD Unavailable +[phone] Leonel Haider SLATE SPLITTING SUPERVISOR Unavailable [phone] Yancy Rees MD Unavailable [phone] Rambo Perez MD Unavailable [phone] Christa Barros NP Primary Care Provider + Ambrosio Navas MD Unavailable +[phone] Ambrosio Navas MD Primary Care Provider +1- Unknown, Unknown Primary Care Provider Unavai Christa [place] NP Primary Care Provider + Christa Barros NP Primary Care Provider + Encounter Details Date Type Department Care Team (Late st Contact Info) Description 03/06/2018 Ancillary Orders [facility] [address] [place] [address] Alex Dorman MD [address] [place] [address] [email or web address] Complete heart block Social History Tobacco [...] Procedure Pass [facility] [address] [place] [address] 02/14/2026 1:45 PM EDT Appointment [facility] [address] [place] [address] Taz Nair MD [address] [place] [address] 03/16/2026 11:40 AM EDT Office Visit [facility] [address], [address] [place] [address] Taz Nair MD [address] [place] [address] documented as of this encounter Visit Diagnoses Diagnosis Complete heart block Atrioventricular block, complete documented in this encounter Additional Health Concerns Infection Onset Date Last Indicated Resolved Time CoV-Risk 06/27/2020 06/27/2020 07/11/2020 1:24 AM EDT CoV-Risk 03/16/2025 03/16/2025 03/27/2025 1:21 AM EDT documented as of this encounter Care Teams Cinder Pitman Relationship Specialty Start Date End Date Ambrosio Navas MD [address] [place] [address] [email or web address] PCP - General 08/26/17 10/23/18 Christa Barros NP [address] [place] [address] [email or web address] PCP - General Internal Medicine 10/24/18 06/19/21 Ambrosio Navas MD [address] [place] [address] [email or web address] PCP - General Internal Medicine 06/20/21 01/29/22 Unknown, Unknown, PCP - General 01/30/22 01/06/24 Christa Barros NP [address] [place] [address] [email or web address] PCP - General Internal Medicine 01/07/24 02/15/25 Christa Barros NP [address] [place] [address] [email or web address] PCP - General Nurse Practitioner 02/16/25 Alex Dorman MD [address] [place] [address] [email or web address] Historical LMR Provider 08/27/17 Christa Barros NP [address] [place] [address] [place] [address] [email or web address] Primary Care Physician 01/07/24 02/15/25 Maryanne Gresham PA Historical LMR Provider 08/27/17 11/18/21 Anahy Cisneros CNP [address] [place] [address] [email or web address] Historical LMR Provider 08/27/17 4 Ambrosio Navas MD [address] [place] [address] [email or web address] Historical LMR Provider 08/27/17 4 Leonel Haider, RASHAWN [address] [place] [address] [address] Historical LMR Provider 08/27/17 2 Yancy Rees MD [address], [place] [address] Historical LMR Provider 08/27/17 2 Rambo Perez MD [address] [place] [address] Historical LMR Provider 08/27/17 Ambrosio Navas MD [address] [place] [address] [email or web address] Insurance Assigned Provider Internal Medicine 09/30/19 01/06/24 documented as of this encounter Additional Source Comments The information contained in this document represents components of the legal health record. It is not the complete legal health record.[facility]
--- OUTSIDE RECORDS SUMMARY | 2025-11-08 17:23 | XMS_ITS | Encounter Summary ---
Author Organization [facility] Address [address] [facility] [address] [place] [address] Phone Care Team Providers Care Otologist Name Role Phone Alex Dorman MD Unavailable [phone] Christa Barros NP Unavailable [phone] Christa Barros NP Primary Care Provider [phone] Christa Barros NP Primary Care Provider [phone] Encounter Details Date Type Department Care Team (Late st Contact Info) Description 11/05/2024 Procedure Pass [facility] [address] [place] [address] Social History Tobacco Use Types Packs/Day Years Used Date Smoking Tobacco: Former Cigarettes 1 7 1 964 - 1971 Smokeless Tobacco: Former Alcohol Use Standard Drinks/Week Comments Not Currently 0 (1 standard drink = 0.6 oz pur e alcohol) non-alcoholic beer only Child or Family Care Answer Date Record ed Do you have problems with on e of the following making it difficult for you to work, study, or receive health care? No 01/07/2024 Education Answer Date Recorded Are you interested in more education? Not on hasmukh e 03/16/2023 Are you concerned about learning? Not on file 03/16/2023 No 03/16/2023 No 03/16/2023 Food Answer Date Recorded Within the past 6 months we worried whether our food would run out before we got money to buy more. Never True 01/07/2024 Within the past 6 months the food we bought just didn't last and we didn't have enough money to get more. Never True Residential Stability Answer Date Recor ded What is your housing situation today? I have molly del cid 01/07/2024 How many times have you move d in the past 12 months? Zero (I did not move) 01/07/2024 Paying for Meds Answer Date Recorded Do you have trouble paying for medicines? No 01/07/2024 Paying Utility Bills Answer Date Record ed Do you have trouble paying your heating or elect ricity bill? No 01/07/2024 Transportation Answer Date Recorded Has the lack of transportati on kept you from medical appointments or from getting medications? No 01/07/2024 Digital Access Answer Date Recorded No 01/07/2024 Yes 01/07/2024 Do you have reliable internet access at home? Ye s 01/07/2024 Do you have a device (e.g., phone, tablet, computer) with a working camera? Yes 01/07/2024 Intimate Partner Violence Answer Date R ecorded Are you denied basic needs s uch as food, clothing, or medical care? No 10/19/2024 In the past 12 months have y ou been in a relationship with a person who hurts, threatens, or tries to control you? No 10/19/2024 Are you denied basic needs s uch as food, clothing, or medical care? No 10/19/2024 In the past 12 months have y ou been in a relationship with a person who hurts, threatens, or tries to control you? No 10/19/2024 Comments No Sex and Gender Information Value [...] Procedure Pass [facility] [address] [place] [address] 02/14/2026 1:45 PM EDT Appointment [facility] [address] [place] [address] Taz Nair MD [address] [place] [address] [email or web address] 03/16/2026 11:40 AM EDT Office Visit [facility] [address] Floor, [address] [place] [address] Taz Nair MD [address] [place] [address] [email or web address] documented as of this encounter Visit Diagnoses Not on filedocumented in this encounter Additional Health Concerns Infection Onset Date Last Indicated Resolved Time CoV-Risk 03/16/2025 03/16/2025 03/27/2025 1:21 AM EDT Assessment Noted Time PHQ-2 Depression Total Score: 2 01/07/20 11:20 AM EST documented as of this encounter Care Teams Otologist Relationship Specialty Start Date End Date Christa Barros NP [address] [place] [address] [email or web address] PCP - General Internal Medicine 01/07/24 02/15/25 Christa Barros NP [address] [place] [address] [email or web address] PCP - General Nurse Practitioner 02/16/25 Alex Dorman MD [email or web address] Historical LMR Provider 08/27/17 Christa Barros NP [address] [place] [address] [email or web address] Primary Care Physician 01/07/24 02/15/25 documented as of this encounter Additional Source Comments The information contained in this document represents components of the legal health record. It is not the complete legal health record.[facility]
--- OUTSIDE RECORDS SUMMARY | 2025-11-08 17:23 | XMS_ITS | Clinical Summary ---
Author Organization [facility] Address [address] [facility] [address] [place] [phone] Phone Care Team Providers Care It Infrastructure Engineer Name Role Phone Alex Dorman MD Unavailable [phone] Christa Barros NP Primary Care Provider [phone] Allergies Active Allergy Reactions Criticality Noted Date Comments Sulfamethoxazole-Trimethopr im Hives 05/26/2018 Bee Pollen 06/11/2019 Mary Albicans Allergenic Extract 12/01/2024 Latex Itching 07/21/2019 Penicillins 05/26/2018 01/07/2024: pt reports she received a test about a year ago and did not react to penicillin at all. Medications tyrosine (L-TYROSINE) 500 mg Tab 1 tablet Active magnesium 200 mg Tab 2 tablets with a meal Active b complex vitamins (VITAMINS B COMPLEX) capsule Take 1 capsule by mouth daily. Active cholecalciferol (VITAMIN D3) 1,000 unit tablet 3 tablet Active Medication-Free Text daily. Suyapa SUPPLEMENT Active verapamiL (VERELAN) 240 MG 24 hr capsule Take 1 capsule by mouth every morning. 4 Active EPINEPHrine 0.3 mg/0.3 mL auto-injectorIn dications:Aller gy to honey bee venom Inject 0.3 mL (0.3 mg total) into the muscle once as needed for anaphylaxis. 2 each 5 Active diazePAM (VALIUM) 5 MG tabletIndicatio ns:Anxiety state Take 0.5-1 tablets (2.5-5 mg total) by mouth daily as needed for anxiety. 30 tablet 5 Active ketoconazole 2 % cream APPLY TWICE DAILY TO RASH ON BUTTOCKS UNTIL RESOLVED. REPEAT NEEDED Active triamcinolone acetonide 0.025 % cream APPLY A THIN LAYER TWICE DAILY TO RASH ON BUTTOCKS FOR 1 WEEK THEN TAKE 1 WEEK OFF, REPEAT NEEDED FOR FLARES Active Hospital, Clinic, or Other Facility Administered Medication Ordered Dose Route Frequency Start Date End Date Status doxycycline hyclate (DORYX) tablet 200 mgIndications:Tick bite of left lower leg, initial encounter 200 mg Oral Once 08/24/2025 11/22/2025 Active Active Problems Problem Noted Date Diagnosed Date Atrial tachycardia 03/26/2025 Assessment & Plan (03/26/2025 12:18 PM EDT): 8 AMS episodes on device interrogations consistent with atrial tachycardia. Pt is currently managed on verapamil. Will continue current management. 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 9.4-year battery life. RA pacing and sensing stable. V paced. V pacing stable. 8 mode switching episodes consistent with atrial tachycardia. AP 27% and DIGITAL PHOTO PRINTER greater than 99%. No parameter changes. Plan: Continue remote monitoring In office device check in 6 months Assessment & Plan (06/11/2019 3:49 PM EDT): Dizziness and extreme of exercise which was related to pacemaker Wenckebach associated with the upper tracking rate as well as long AV delays which were fixed. After making those changes she has done well without any symptoms. She should be followed remotely which I have reiterated to her. I will see her back in a years time. Her pacemaker will be checked remotely every 3 months Complete heart block 12/19/2017 Assessment & Plan (03/26/2025 12:18 PM EDT): Pacemaker in situ. Assessment & Plan (06/29/2024 9:59 AM EDT): S/p pacemaker. Device interrogation within normal limits. 7 months of battery life left. Will schedule monthly remote follow-ups Assessment & Plan (06/11/2019 3:49 PM EDT): Complete heart block with dual-chamber pacemaker and no ventricular escape rhythm. Assessment & Plan (06/26/2018 5:07 PM EDT): - She is doing better since adjustment of her pacemaker. Dr. Rosales was in to see her today. He will add additional information to this visit note. She will continue to be followed in the device clinic. She will follow-up in the office in 3 months with a in person check, and with Dr. Rosales in 6 months. Assessment & Plan (12/19/2017 12:20 PM EST): Complete heart block with dual-chamber Medtronic pacemaker in place which is functioning appropriately. She is being followed in our device clinic. Resolved Problems Problem Noted Date Diagnosed Date Resolved Date Complete heart block 10/24/2018 024 Dizziness and giddiness 12/19/2017 032 01/2024 Assessment & Plan (06/26/2018 5:07 PM EDT): - This has improved significantly since adjustment of her pacemaker. Dr. Rosales to add additional information on this. Device check completed in the office today. We'll continue with device checks in office. Assessment & Plan (12/19/2017 12:23 PM EST): Dizziness and extreme of exercise which I think is probably related to pacemaker Wenckebach associated with the upper tracking rate as well as long AV delays which were fixed. I have made changes to her pacemaker programming as above. We will see if this helps. Other chest pain 12/19/2017 02/01/2024 Assessment & Plan (06/26/2018 5:07 PM EDT): - She reports that this isn't resolved, she thinks it was due to indigestion. Her stress test was negative for ischemia. Assessment & Plan (12/19/2017 12:22 PM EST): Atypical chest pain and she has gone through a nuclear stress test.. The results of the nuclear images are still pending. Encounters Date Type Department Care Team Description 10/05/2025 10:40 AM EST Office Visit [facility] [address]rd [address], [address] [place] [address] Taz Nair MD Pacemaker (Primary Dx); Complete heart block; Hyperlipidemia, unspecified hyperlipidemia type; Dyspnea, unspecified type 09/15/2025 10:16 AM EST - 09/15/2025 11:59 PM EST Hospital Encounter [facility] [address] [place] [address] Taz Nair MD Discharge Disposition: Home or Self Care 09/13/2025 9:53 PM EST - 09/14/2025 12:55 AM EST Emergency [facility] [address] [place] [address] Mary Ge MD Discharge Disposition: Home or Self Care 08/24/2025 10:30 AM EDT Office Visit [facility] [place] [address] [place] [address] Alexa Fernández, Master Sánchez, PRESTONC Tick bite of left lower leg, initial encounter (Primary Dx) 11/05/2024 Procedure Pass [facility] [address] [place] [address] from Last 3 Months Immunizations Immunization Administration Dates Next Due COVID-19 (Pre-09/02) Moderna Vaccine Adult Booster/6-11yrs Primary 06/18/2022,10/02/2021 INFLUENZA, SPLIT VIRUS, TRIV ALENT W/ PRESERVATIVE IM 10/11/2010 Influenza High-Dose Quadriva lent Preservative Free IM 09/30/2023,08/08/2022,08/04/2020 Influenza High-Dose Trivalen t Preservative Free IM 09/15/2025,09/29/2024,08/25/2019,09/28,09/27/2017,09/13/2016,09/08/2015 Influenza Quadrivalent Prese rvative Free IM 10/23/2021 Influenza, Unspecified Formulation 10/04/2014 Pneumococcal conjugate PCV13 11/18/2014 Pneumococcal conjugate PCV20 01/25/2023 Pneumococcal polysaccharide PPSV23 12/15/2018, RSV Vaccine (monovalent, adjuvanted) 10/30/2023 Tdap 02/10/2025,07/09/2023,06/20/2021 Zoster recombinant 12/10/2023,04/25/2023 Family History Medical History Relation Comments Ankylosing spondylitis Father Hepatitis B Father Aortic valve stenosis Mother Hypertension Mother Mitral valve insufficiency Mother Aortic valve stenosis Sister 1 Breast cancer Sister 1 Alcohol abuse Sister 2 Bipolar disorder Sister 2 Relation Status Comments Daughter Alive Father Mother Sister 1 Alive Sister 2 Alive Social History Tobacco Use Types Packs/Day Years Used Date Smoking Tobacco: Former Cigarettes 1 7 1 964 - 1971 Smokeless Tobacco: Former Tobacco Cessation:Counseling Given: Not Answered Alcohol Use Standard Drinks/Week Comments Not Currently [...] got money to buy more. Never True 09/13/2025 Within the past 6 months the food we bought just didn't last and we didn't have enough money to get more. Never True Residential Stability Answer Date Recor ded What is your housing situation today? I have molly del cid 09/13/2025 How many times have you move d in the past 12 months? Zero (I did not move) 09/13/2025 Paying for Meds Answer Date Recorded Do you have trouble paying for medicines? No 09/13/2025 Paying Utility Bills Answer Date Record ed Do you have trouble paying your heating or elect ricity bill? No 09/13/2025 Transportation Answer Date Recorded Has the lack of transportati on kept you from medical appointments or from getting medications? No 09/13/2025 Digital Access Answer Date Recorded No 09/13/2025 Yes 09/13/2025 Do you have reliable internet access at home? Ye s 09/13/2025 Do you have a device (e.g., phone, tablet, computer) with a working camera? Yes 09/13/2025 Intimate Partner Violence Answer Date R ecorded Are you denied basic needs s uch as food, clothing, or medical care? No 09/13/2025 In the past 12 months have y ou been in a relationship with a person who hurts, threatens, or tries to control you? No 09/13/2025 Are you denied basic needs s uch as food, clothing, or medical care? No 09/13/2025 In the past 12 months have y ou been in a relationship with a person who hurts, threatens, or tries to control you? No 09/13/2025 Comments No Sex and Gender Information Value Date Recorded Sex Assigned at Female 08/18/2020 12:21 PM EDT Legal Sex Female 5:37 PM EST Gender Identity Female 08/18/2020 12:21 PM EDT Sexual Orientation Don't know 08/25/2024 12 :10 PM EDT Last Filed Vital Signs Vital Sign Reading Time Taken Comments Blood Pressure 94/66 10/05/2025 11:07 AM EST Pulse 73 10/05/2025 11:07 AM EST Temperature 35.8 C (96.4 F) 09/14/2025 12:42 AM EST Respiratory Rate 18 09/14/2025 12:42 AM EST Oxygen Saturation 99% 10/05/2025 11:07 AM EST Inhaled Oxygen Concentration - - Weight 54.9 kg (121 lb) 10/05/2025 11:07 AM EST Height 162.6 cm (5' 4.02 ) 10/05/2025 11:07 AM Leandro STEWART Body Mass Index 20.76 10/05/2025 11:07 AM EST Plan of Treatment Upcoming Encounters Date Type Department Care Team (Late st Contact Info) Description 10/05/2025 Procedure Pass [facility] [address] [place] [address] 02/14/2026 1:45 PM EDT Appointment [facility] [address] [place] [address] Taz Nair MD [address] [place] [address] [email or web address] 03/16/2026 11:40 AM EDT Office Visit [facility] [address] [place] [address] 3rd Floor, [address] [place] [address] Taz Nair MD [address] [place] [address] Health Maintenance Due Date Last Done Comments HEPATITIS C SCREENING 1966 OSTEOPOROSIS SCREENING INITIAL (ONE-TIME) 2013 DEPRESSION SCREENING 01/07/2025 01/07/2024 COVID-19 VACCINE ( season) 2025 10/14/2023, 10/03/2022, 06/18/2022, Additional history exists BLOOD PRESSURE 04/04/2026 10/05/2025 LIPID PANEL 10/05/2030 10/05/2025, 04/0 06/2025, 06/25/2024, Additional history exists Adult Td,Tdap Booster 02/10/2035 02/10/2025 , 07/09/2023, 06/20/2021 PNEUMOCOCCAL VACCINES (50+ years) Completed 01/25/2023, 12/15/2018, 06/24/2015, Additional history exists RSV VACCINE Completed 10/30/2023 ZOSTER VACCINES Completed 12/10/2023, 04/25/2023 INFLUENZA VACCINE Completed 09/15/2025, , 09/30/2023, Additional history exists SMOKING STATUS SCREENING (Once After 26 Yrs) Completed 10/05/2025 HEPATITIS A VACCINES Aged Out No long er eligible based on patient's age to complete this topic HIB VACCINES Aged Out No longer eligi ble based on patient's age to complete this topic MENINGOCOCCAL VACCINES (ACWY) Aged Out No longer eligible based on patient's age to complete this topic MENINGOCOCCAL VACCINES (B) Aged Out N o longer eligible based on patient's age to complete this topic Medical Devices Implanted Type Area Alarm Field Technician Device Identifier Shelf Expiration Date Model / Serial / Lot Pacemaker Dual Chamber [id number] 10.4cc Is-1 Connector Assurity Mri - [id number] Implanted:Qty: 1 on 10/19/2024 by Taz Nair MD at [facility] Pacemaker [employer]IRA [employer] [id number] 12/11/2025 [id number] / Bioenvelope Antibiotic-Elut ing Elupro M Single Pack - [id number] Implanted:Qty: 1 on 10/19/2024 by Taz Nair MD at [facility] AZIPersoneta 06/22/2025 [id number] / / [id number] Procedures Procedure Name Priority Date/Time Associated Diagnosis Comments LIPID PANEL Routine 10/05/2025 11:45 AM EST Hyperlipidemia, unspecified hyperlipidemia type DEVICE CHECK: PPM IN-PERSON PROGRAMMING DUAL LEAD Routine 09/15/2025 11:05 AM EST Pacemaker XR CHEST PA AND LATERAL 2 VIEWS Routine 09/13/2025 11:48 PM EST LFTS (HEPATIC PANEL) STAT 09/13/2025 11:27 PM EST PHOSPHORUS STAT 09/13/2025 11:27 PM EST MAGNESIUM STAT 09/13/2025 11:27 PM EST TROPONIN STAT 09/13/2025 11:27 PM EST LYME SCREEN WITH REFLEX TO WESTERN BLOT, BLOOD STAT 09/13/2025 11:27 PM EST CBC AND DIFFERENTIAL STAT 09/13/2025 10:10 PM EST TROPONIN STAT 09/13/2025 10:10 PM EST BASIC METABOLIC PANEL (BMP) STAT 09/13/2025 10:10 PM EST CBC AND DIFFERENTIAL STAT 09/13/2025 10:10 PM EST ECG 12-LEAD STAT 09/13/2025 9:37 PM EST from Last 3 Months Results * (ABNORMAL) Lipid Panel (10/05/2025 11:45 AM EST) Cholesterol 214(H) <200 mg/dL 10/05/2025 4:47 PM [facility] HDL 91 >=40 mg/dL 10/05/2025 4:47 PM [facility] Calculated LDL 114 <130 mg/dL 10/05/2025 4:47 PM [facility] Comment:LDL is calculated us ing the Orta-NIH equation (MASSIMO Cardiol. 2019March 11;5(5):540-548). Non-HDL Cholesterol 123 mg/dL 10/05/2025 4:47 PM [facility] Comment:Guidelines suggest a non-HDL cholesterol goal 30 mg/dL higher than the patient-specific LDL cholesterol goal. Cardiac Risk Ratio 2.4 0.0 - 5.0 2024 4:47 PM [facility] Triglycerides 52 <=150 mg/dL 10/05/2025 4:47 PM [facility] Blood (Blood) Venipuncture / Unknown 10/05/2025 11:45 AM EST 10/05/2025 11:45 AM EST us Taz Nair MD LAB BLOOD BKR ORDERABLES Idalia l Result [address] [address] * DEVICE CHECK: PPM IN-PERSON PROGRAMMING DUAL LEAD (09/15/2025 11:05 AM EST) Narrative Alex Gusman DO - 09/21/2025 2:39 PM EST Table formatting from the original result was not included. Reason for appointment: In-office pacemaker interrogation HPI: In-office pacemaker interrogation at patient's request following ED visit, using iterative adjustment to test the function of the device and select optimal permanent programmed values. No device related complaints. Indication for device: CHB Examination: Device type: Pacemaker Alarm Field Technician: [employer] [place] Mode: DDD LRL/URL: 60/150 bpm Thresholds, impedances, and sensing stable. High V rates: 0 Mode switches: 3 episodes < 30 sec since 08/19, appears to be atrial flutter, strips attached - most recent episode 09/04, no events on 09/13 Atrial pacin% Ventricular pacin% Battery: 8.7 yrs RA RV LV Sensing 2.7mV 12mV Threshold .75V@.5ms 1.25V@.5ms Impedance 450 ohms 450 ohms Additional comments or changes: normal pacemaker function and stable pacing and sensing thresholds. Sherita presented [facility] the [facility] ED with palpitations and lightheadedness, she describes an irregular beat w/a skip and a thump, PVCs. PVC count 2.5% Patient will return for in-office device check in: 6 months Report prepared by Fly Spain RN us Taz Nair MD [facility] ORDERABLE S Final Result * XR CHEST PA AND LATERAL 2 VIEWS (09/13/2025 11:48 PM EST) Anatomical Region Laterality Modality Chest Computed Radiogr aphy 09/14/2025 1:23 AM EST Impressions 09/14/2025 1:55 AM EST No acute abnormality. ATTESTATION: I, Rigo Timmons as teaching physician, have reviewed the images for this case and if necessary edited the report originally created by Nik Thomason. Narrative 09/14/2025 1:55 AM EST XR CHEST PA AND LATERAL 2 VIEWS Referring clinician's provided indication for this examination in Epic: Dyspnea (Shortness of Breath) COMPARISON: XR CHEST PA AND LATERAL 2 VIEWS FINDINGS: Devices/Tubes/Lines: Right chest wall pacemaker with leads projecting over the right atrium and right ventricle. Lungs: Hyperinflated lungs. No focal consolidation or pulmonary edema. Pleura: No pleural effusion or pneumothorax. Heart/Mediastinum: Unchanged in appearance. Bones/Soft Tissues: No significant abnormality. Procedure Note Rigo Timmons DO - 09/14/2025 XR CHEST PA AND LATERAL 2 VIEWS Referring clinician's provided indication for this examination in Epic:Dyspnea (Shortness of Breath) COMPARISON: XR CHEST PA AND LATERAL 2 VIEWS FINDINGS: Devices/Tubes/Lines: Right chest wall pacemaker with leads projecting overthe right atrium and right ventricle. Lungs: Hyperinflated lungs. No focal consolidation or pulmonary edema. Pleura: No pleural effusion or pneumothorax. Heart/Mediastinum: Unchanged in appearance. Bones/Soft Tissues: No significant abnormality. IMPRESSION: No acute abnormality. ATTESTATION: I, Rigo Timmons as teaching physician, have reviewed theimages for this case and if necessary edited the report originally createdby Nik Thomason. Mary Jorgensen MD IMG XR CHEST Final Resul t * Lyme Screen with Reflex to Immunoblot (09/13/2025 11:27 PM EST) Pathologist [facility] Lyme Ab IgG Negative Negative 09/14/2025 11:35 AM [facility] Lyme Ab IgM Negative Negative 09/14/2025 11:35 AM EST [facility] Comment:A negative result do es not rule out the possibility of B.burgdorferi infection in a patient. Patients in early stages of infection may not produce detectable levels of antibody. Blood (Blood) Venipuncture / Unknown 09/13/2025 11:27 PM EST 09/13/2025 11:43 PM EST us Mary Jorgensen MD LAB BLOOD BKR ORDERABLES Fi nal Result Performing Organization Address City/[facility]/ZIP Co de Phone Number [address] [address] * (ABNORMAL) Hepatic Panel (LFTs) (09/13/2025 11:27 PM EST) Pathologist [facility] AST 29 <33 U/L 09/14/2025 12:12 AM [facility] ALT 35(H) <34 U/L 09/14/2025 12:12 AM [facility] Alkaline Phosphatase 66 40 - 130 U/L 09/14/2025 12:12 AM [facility] Bilirubin, Total 0.2 0.0 - 1.2 mg/dL 09/14/2025 12:12 AM [facility] Bilirubin, Direct 0.1 0.0 - 0.3 mg/dL 09/14/2025 12:12 AM [facility] Total Protein 6.8 6.4 - 8.3 g/dL 09/14/2025 12:12 AM [facility] Albumin 3.9 3.5 - 5.2 g/dL 09/14/2025 12:12 AM [facility] Globulin 2.9 1.9 - 4.1 g/dL 09/14/2025 12:12 AM [facility] Blood (Blood) Venipuncture / Unknown 09/13/2025 11:27 PM EST 09/13/2025 11:43 PM EST us Mary Jorgensen MD LAB BLOOD BKR ORDERABLES Fi nal Result Performing Organization Address City/[facility]/ZIP Co de Phone Number [address] [address] * Troponin (09/13/2025 11:27 PM EST) Only the most recent of2 resultswithin the time period is included. Pathologist [facility] Troponin-T HS Gen5 7 0 - 9 ng/L 09/14/2025 12:03 AM EST [facility] Blood (Blood) Venipuncture / Unknown 09/13/2025 11:27 PM EST 09/13/2025 11:43 PM EST Jonathan Dutton MD LAB BLOOD BKR ORD ERABLES Final Result Performing Organization Address City/[facility]/ZIP Co de Phone Number [address] [address] * Phosphorus (09/13/2025 11:27 PM EST) Phosphorus 3.8 2.5 - 4.5 mg/dL 09/14/2025 12:12 AM EST [facility] Blood (Blood) Venipuncture / Unknown 09/13/2025 11:27 PM EST 09/13/2025 11:43 PM EST Mary Jorgensen MD LAB BLOOD BKR ORDERABLES Fi nal Result Performing Organization Address [facility]/ZIP Co de Phone Number [address] [address] * Magnesium (09/13/2025 11:27 PM EST) Magnesium 2.3 1.7 - 2.6 mg/dL 09/14/2025 12:12 AM EST [facility] Blood (Blood) Venipuncture / Unknown 09/13/2025 11:27 PM EST 09/13/2025 11:43 PM EST Mary Jorgensen MD LAB BLOOD BKR ORDERABLES Fi nal Result Performing Organization Address City/[facility]/ZIP Co de Phone Number [address] [address] * (ABNORMAL) CBC and Differential (09/13/2025 10:10 PM EST) WBC 7.19 4.00 - 11.00 K/uL 09/13/2025 10:17 PM [facility] RBC 3.90(L) 4.00 - 5.20 M/uL 09/13/2025 10:17 PM [facility] Hemoglobin 11.7(L) 12.0 - 16.0 g/dL 09/13/2025 10:17 PM [facility] Hematocrit 36.4 36.0 - 46.0 % 09/13/2025 10:17 PM [facility] MCV 93.3 80.0 - 100.0 fL 09/13/2025 10:17 PM [facility] MCH 30.0 27.0 - 31.0 pg 09/13/2025 10:17 PM [facility] MCHC 32.1 32.0 - 36.0 g/dL 09/13/2025 10:17 PM [facility] MPV 10.5 8.4 - 12.0 fL 09/13/2025 10:17 PM [facility] RDW-CV 13.8 11.5 - 14.5 % 09/13/2025 10:17 PM [facility] PLT 213 150 - 450 K/uL 09/13/2025 10:17 PM [facility] Neutrophils 52.2 % 09/13/2025 10:17 PM [facility] Lymphocytes 32.8 % 09/13/2025 10:17 PM [facility] Monocytes 11.5 % 09/13/2025 10:17 PM [facility] Eosinophils 2.8 % 09/13/2025 10:17 PM [facility] Basophils 0.4 % 09/13/2025 10:17 PM [facility] Imm Grans 0.3 % 09/13/2025 10:17 PM [facility] NRBC 0.0 <=0.0 /100 WBCs 09/13/2025 10:17 PM [facility] Absolute Neutrophils 3.75 1.92 - 7.60 K/uL 09/13/2025 10:17 PM [facility] Absolute Lymphocytes 2.36 0.72 - 4.10 K/uL 09/13/2025 10:17 PM [facility] Absolute Monocytes 0.83 0.16 - 1.10 K/uL 09/13/2025 10:17 PM [facility] Absolute Eosinophils 0.20 0.00 - 0.50 K/uL 09/13/2025 10:17 PM [facility] Absolute Basophils 0.03 0.00 - 0.15 K/uL 09/13/2025 10:17 PM [facility] Absolute Imm Grans 0.02 0.00 - 0.09 K/uL 09/13/2025 10:17 PM [facility] Absolute NRBC 0.00 <=0.00 K cells/uL 09/13/2025 10:17 PM [facility] Absolute Neutrophils 3.75 1.92 - 7.60 K/uL 09/13/2025 10:17 PM [facility] Comment:Automated cell count . Manual ANC may differ if performed. Diff Type Auto 09/13/2025 10:17 PM [facility] Blood (Blood) Venipuncture / Unknown 09/13/2025 10:10 PM EST 09/13/2025 10:13 PM EST us Jonathan Dutton MD LAB BLOOD BKR ORD ERABLES Final Result [facility] [address] [place] [address] * Basic Metabolic Panel (BMP) (09/13/2025 10:10 PM EST) Sodium 140 136 - 145 mmol/L 09/13/2025 10:50 PM [facility] Potassium 3.8 3.4 - 5.1 mmol/L 09/13/2025 10:50 PM [facility] Chloride 106 98 - 107 mmol/L 09/13/2025 10:50 PM [facility] CO2 23 20 - 31 mmol/L 09/13/2025 10:50 PM [facility] Anion Gap 11 3 - 17 mmol/L 09/13/2025 10:50 PM [facility] BUN 21 6 - 23 mg/dL 09/13/2025 10:50 PM [facility] Creatinine 0.80 0.50 - 1.00 mg/dL 09/13/2025 10:50 PM EST [facility] eGFR 76 >59 mL/min/1.7 3m2 09/13/2025 10:50 PM EST [facility] Comment:Estimated glomerular filtration rate calculated using the CKD-EPI refit equation. Glucose 89 70 - 99 mg/dL 09/13/2025 10:50 PM EST [facility] Calcium 9.0 8.5 - 10.5 mg/dL 09/13/2025 10:50 PM EST [facility] Blood (Blood) Venipuncture / Unknown 09/13/2025 10:10 PM EST 09/13/2025 10:14 PM EST us Jonathan Dutton MD LAB BLOOD BKR ORD ERABLES Final Result Performing Organization Address City/[facility]/ZIP Co de Phone Number [address] [address] * ECG 12-LEAD (09/13/2025 9:37 PM EST) Ventricular Rate EKG/MIN 78 BPM [facility] Atrial Rate 78 BPM [facility] WA Interval 160 ms [facility] QRS Duration 100 ms [facility] QT Interval 408 ms [facility] QTC Interval 465 ms [facility] P [place] 76 degrees [facility] R Wave [place] 51 degrees [facility] T Wave [place] 235 degrees [facility] 09/13/2025 9:37 PM EST 09/14/2025 9:20 AM EST Narrative [facility] - 09/14/2025 9:20 AM EST Sinus rhythm with marked sinus arrhythmia with frequent ventricular-paced complexes Septal infarct , age undetermined ST & Marked T wave abnormality, consider anterolateral ischemia Abnormal ECG When compared with ECG of 19-Oct-2024 11:54, Vent. rate has increased by 13 bpm Confirmed by Alex Gusman ([id number]) on 09/14/2025 9:20:24 AM us Jonathan Dutton MD ECG ORDERABLES F inal Result MUSE_CDH from Last 3 Months Insurance [facility] MEDICARE PPO BLUE REPLACEMENT [facility] MEDIC[facility] PPO BLUE REPLACEMENT [facility] MEDICARE PPO BLUE REPLACEMENT MEDICARE PPO BLUE REPLACEMENT MEDICARE PPO BLUE REPLACEMENT MEDICARE PPO BLUE REPLACEMENT Care Teams It Infrastructure Engineer Relationship Specialty Start Date End Date Christa Barros NP [address] [place] [address] [place] [address] [email or web address] PCP - General Nurse Practitioner 02/16/25 Alex Dorman MD [email or web address] Historical LMR Provider 08/27/17 Additional Source Comments The information contained in this document represents components of the legal health record. It is not the complete legal health record.[facility]
--- OUTSIDE RECORDS SUMMARY | 2025-11-08 17:23 | XMS_ITS | Encounter Summary ---
Author Organization [facility] Address [address] [place] [address] [place] [address] Phone Care Team Providers Care Quality Control Inspector Heading Name Role Phone Ambrosio Navas MD Primary Care Provider +1 Alex Dorman MD Unavailable +[phone] Christa Barros NP Unavailable [phone] Maryanne Gresham Unavailable [email or web address] Anahy Cisneros HEALTHCARE MARKET CONSULTANT Unavailable +1- Ambrosio Navas MD Unavailable +[phone] Leonel Haider PHYSICAL PLANT MANAGER Unavailable [phone] Yancy Rees MD Unavailable [phone] Rambo Perez MD Unavailable [phone] Christa Barros NP Primary Care Provider + Ambrosio Navas MD Unavailable +[phone] Ambrosio Navas MD Primary Care Provider +1- Unknown, Unknown Primary Care Provider Unavai Christa Phillips NP Primary Care Provider + Christa Barros NP Primary Care Provider + Encounter Details Date Type Department Care Team (Latest Contact Info) Description 12/12/2017 Ancillary Orders [facility] [address], [address] [place] [address] Leonel Haider, RASHAWN [address] [facility] [address] [place] [address] Chest pain, unspecified type Social History Tobacco [...] Procedure Pass [facility] [address] [place] [address] 02/14/2026 1:45 PM EDT Appointment [facility] [place] [address] Taz Nair MD [address] [place] [address] 03/16/2026 11:40 AM EDT Office Visit [facility] [address], [address] [place] [address] Taz Nair MD [address] [place] [address] documented as of this encounter Visit Diagnoses Diagnosis Chest pain, unspecified type documented in this encounter Additional Health Concerns Infection Onset Date Last Indicated Resolved Time CoV-Risk 06/27/2020 06/27/2020 07/11/2020 1:24 AM EDT CoV-Risk 03/16/2025 03/16/2025 03/27/2025 1:21 AM EDT documented as of this encounter Care Teams Quality Control Inspector Heading Relationship Specialty Start Date End Date Ambrosio Navas MD [address] [address] [email or web address] PCP - General 08/26/17 10/23/18 Christa Barros NP [address] [place] [address] [email or web address] PCP - General Internal Medicine 10/24/18 06/19/21 Ambrosio Navas MD [address] [place] [address] [email or web address] PCP - General Internal Medicine 06/20/21 01/29/22 Unknown, Nam, PCP - General 01/30/22 01/06/24 Christa Barros NP [address] [place] [address] [email or web address] PCP - General Internal Medicine 01/07/24 02/15/25 Christa Barros NP [address] [place] [address] [email or web address] PCP - General Nurse Practitioner 02/16/25 Alex Dorman MD [address] [place] [address] [email or web address] Historical LMR Provider 08/27/17 Christa Barros NP [address] [place] [address] [email or web address] Primary Care Physician 01/07/24 02/15/25 Maryanne Gresham PA Historical LMR Provider 08/27/17 11/18/21 [place] Anahy JULIANNA Harp [address] [place] [address] [place] [address] [email or web address] Historical LMR Provider 08/27/17 4 Ambrosio Navas MD [address] [place] [address] [place] [address] [email or web address] Historical LMR Provider 08/27/17 4 Leonel Haider, RASHAWN [address] [place] [phone] Historical LMR Provider 08/27/17 2 Yancy Rees MD [address] [place] [address] Historical LMR Provider 08/27/17 2 Rambo Perez MD [address] [place] [address] Historical LMR Provider 08/27/17 Ambrosio Navas MD [address] [place] [address] [place] [address] [email or web address] Insurance Assigned Provider Internal Medicine 09/30/19 01/06/24 documented as of this encounter Additional Source Comments The information contained in this document represents components of the legal health record. It is not the complete legal health record.[facility]
--- OUTSIDE RECORDS SUMMARY | 2025-11-08 17:23 | XMS_ITS | Encounter Summary ---
Author Organization [facility] Address [address] [place] [address] [place] [address] Phone Care Team Providers Care Mutuel Teller Name Role Phone Ambrosio Navas MD Primary Care Provider +1 Alex Dorman MD Unavailable [phone] Christa Barros NP Unavailable [phone] Maryanne Gresham Unavailable [email or web address] Anahy Cisneros COMMUNITY HEALTH NURSE STAFF Unavailable +1- Ambrosio Navas MD Unavailable +[phone] Leonel Haider SUPERVISOR BLAST FURNACE Unavailable [phone] Yancy Rees MD Unavailable [phone] Rambo Perez MD Unavailable [phone] Christa Barros NP Primary Care Provider + Ambrosio Navas MD Unavailable +[phone] Ambrosio Navas MD Primary Care Provider +1- Unknown, Unknown Primary Care Provider Unavai Christa Phillips NP Primary Care Provider + Christa Barros NP Primary Care Provider + Encounter Details Date Type Department Care Team (Latest Contact Info) Description 08/31/2017 Ancillary Orders [facility] [address], [address] [place] [address] Leonel Haider, SUPERVISOR BLAST FURNACE [address] [facility] [address] [place] [address] Diagnosis unknown Social History Tobacco Use Types Packs/Day Years [...] Procedure Pass [facility] [place] [address] 02/14/2026 1:45 PM EDT Appointment [facility] [place] [address] Taz Nair MD [address] [place] [address] 03/16/2026 11:40 AM EDT Office Visit [facility] [address] Floor, [address] [place] [address] Taz Nair MD [address] [place] [address] documented as of this encounter Results * DEVICE CHECK: PPM IN-PERSON PROGRAMMING DUAL LEAD (06/26/2018 3:50 PM EDT) Narrative Alex Dorman MD - 06/26/2018 4:11 PM EDT Reason for appointment: In-office pacemaker interrogation HPI: Routine in-office pacemaker interrogation, using iterataive adjustment to test the function of the device and select optimal permanent programmed values. No device related complaints. Indication for device: CHB Examination: Device type: Pacemaker Homeopathic Doctor: Medtronic Mode: AAIR-DDDR LRL/URL: 50/150 bpm Thresholds, impedances, and sensing stable. High V rates: 16, avail EGMs Atach Mode switches: 14, all less than 1 min, burden <.1% AF/AT: Patient is currently taking no OAC daily. Atrial pacin% Ventricular pacin% Battery: 5 yrs RA RV LV Sensing 1-1.4mV Paced Threshold .5V@.4ms 1V@.4ms Impedance 553 ohms 495 ohms Additional comments or changes: Mode changed from MVP to DDDR for CHB Patient will return for in-office device check in: 3 months, no remote Report prepared by Fly Atkins RN Leonel Haider NP [facility] ORDERABL ES Final Result * DEVICE CHECK: PPM IN-PERSON PROGRAMMING DUAL LEAD (12/05/2017 4:16 PM EST) Narrative Alex Dorman MD - 12/06/2017 10:33 AM EST CC: Device check -dual chamber pacemaker HPI: Sherita Elmore is here for program evaluation of Medtronic dual-chamber pacemaker. No device related complaints. Indication for device: CHB. Please see full scanned interrogation details associated with today's date. Device Check: Device Type: Pacemaker Homeopathic Doctor:Medtronic Battery: 6.5 yrs Mode: MVPR LRL/URL: 50/150 bpm AP: 12% AUTOMOTIVE REPAIR TECHNICIAN: 99% AMS: None Lead impedances, sensing, and thresholds testing all within normal parameters. There were no alerts, automatic mode switches, or ventricular high rate episodes. Assessment: CHB Plan: Programming evaluation completed today with iterative adjustment of the implantable device to test the function and select optimal permanent program values with analysis, review and report. Normal device function with no device related complaints. Was reviewed with my supervising physician. Patient to follow-up for continued monitoring. She has declined remote monitoring services Leonel Haider NP ADDENDUM: Patient was scheduled to see Dr. Perez who is no longer with the practice. She is concerned that she may be having some cardiac symptoms related to elevated blood pressure. She describes one episode of chest pain after coitus. She took her BP and her systolic pressure was elevated at 190 mmHg. She took an extra Verapamil for which she takes prophylaxis for migraines. She rested and her symptoms subsided. She has had no further episodes of discomfort. I have ordered a stress test to rule out ischemia although my suspicion is low and also to give patient reassurance. She will walk on the treadmill so we can evaluate her BP with exercise (we will need to make sure her upper rate limits are extended to avoid Wenckebach during exercise as she is pacer dependent). She is going to transition care to Dr. Rosales and will see him after the stress test. us Leonel Haider NP CV CARDIAC SERVICES ORDERABL ES Final Result documented in this encounter Visit Diagnoses Diagnosis Diagnosis unknown Diagnosis unknown Diagnosis unknown documented in this encounter Additional Health Concerns Infection Onset Date Last Indicated Resolved Time CoV-Risk 06/27/2020 06/27/2020 07/11/2020 1:24 AM EDT CoV-Risk 03/16/2025 03/16/2025 03/27/2025 1:21 AM EDT documented as of this encounter Care Teams Mutuel Teller Relationship Specialty Start Date End Date Ambrosio Navas MD [address] [place] [address] PCP - General 08/26/17 10/23/18 Christa Barros NP [address] [place] [address] [place] [address] PCP - General Internal Medicine 10/24/18 06/19/21 Ambrosio Navas MD [address] [place] [address] [place] [address] PCP - General Internal Medicine 06/20/21 01/29/22 Unknown, Nam, PCP - General 01/30/22 01/06/24 Christa Barros NP [address] [place] [address] [email or web address] PCP - General Internal Medicine 01/07/24 02/15/25 Christa Barros NP [address] [place] [address] [email or web address] PCP - General Nurse Practitioner 02/16/25 Alex Dorman MD [address] [place] [address] [email or web address] Historical LMR Provider 08/27/17 Christa Barros NP [address] [place] [address] [email or web address] Primary Care Physician 01/07/24 02/15/25 Maryanne Gresham PA Historical LMR Provider 08/27/17 11/18/21 Anahy Cisneros CNP [address] [place] [address] [email or web address] Historical LMR Provider 08/27/17 Ambrosio Montiel MD [address] [place] [address] [email or web address] Historical LMR Provider 08/27/17 4 Leonel Haider NP [address] [place] [address] [address] [place] [phone] Historical LMR Provider 08/27/17 2 Yancy Rees MD [address] [place] [address] Historical LMR Provider 08/27/17 2 Rambo Perez MD [address] [place] [address] Historical LMR Provider 08/27/17 Ambrosio Navas MD [address] [place] [address] [address] [place] [address] [email or web address] Insurance Assigned Provider Internal Medicine 09/30/19 01/06/24 documented as of this encounter Additional Source Comments The information contained in this document represents components of the legal health record. It is not the complete legal health record.[facility]
--- OUTSIDE RECORDS SUMMARY | 2025-11-08 17:24 | XMS_ITS | Encounter Summary ---
Author Organization [facility] Address [address] [place] [address] Phone Care Team Providers Care [employer] Team Member Name Role Phone Alex Dorman MD Unavailable [phone] Christa Barros NP Primary Care Provider [phone]- [phone] Encounter Details Date Type Department Care Team (Late st Contact Info) Description 07/12/2025 Procedure Pass [facility] Scan - [address] [address] Social History Tobacco Use Types Packs/Day Years [...] got money to buy more. Never True 07/12/2025 Within the past 6 months the food we bought just didn't last and we didn't have enough money to get more. Never True Residential Stability Answer Date Recor ded What is your housing situation today? I have molly del cid 07/12/2025 How many times have you move d in the past 12 months? Zero (I did not move) 07/12/2025 Paying for Meds Answer Date Recorded Do you have trouble paying for medicines? No 07/12/2025 Paying Utility Bills Answer Date Record ed Do you have trouble paying your heating or elect ricity bill? No 07/12/2025 Transportation Answer Date Recorded Has the lack of transportati on kept you from medical appointments or from getting medications? No 07/12/2025 Digital Access Answer Date Recorded No 07/12/2025 Yes 07/12/2025 Do you have reliable internet access at home? Ye s 07/12/2025 Do you have a device (e.g., phone, tablet, computer) with a working camera? Yes 07/12/2025 Intimate Partner Violence Answer Date R ecorded Are you denied basic needs s uch as food, clothing, or medical care? No 07/12/2025 In the past 12 months have y ou been in a relationship with a person who hurts, threatens, or tries to control you? No 07/12/2025 Are you denied basic needs s uch as food, clothing, or medical care? No 07/12/2025 In the past 12 months have y ou been in a relationship with a person who hurts, threatens, or tries to control you? No 07/12/2025 Comments No Sex and Gender Information Value [...] Procedure Pass [facility] [address] [place] [address] 02/14/2026 1:45 PM EDT Appointment [facility] [address] [place] [address] Taz Nair MD [address] [place] [address] [email or web address] 03/16/2026 11:40 AM EDT Office Visit [facility] [address] [facility], [address] [place] [address] Taz Nair MD [address] [place] [address] [email or web address] documented as of this encounter Visit Diagnoses Not on filedocumented in this encounter Additional Health Concerns Assessment Noted Time PHQ-2 Depression Total Score: 2 01/07/20 24 11:20 AM EST documented as of this encounter Care Teams [employer] Team Member Relationship Specialty Start Date End Date Christa Barros NP [address] [place] [address] [address] [place] [address] [email or web address] PCP - General Nurse Practitioner 02/16/25 Alex Dorman MD [email or web address] Historical LMR Provider 08/27/17 documented as of this encounter Additional Source Comments The information contained in this document represents components of the legal health record. It is not the complete legal health record.[facility]
--- OUTSIDE RECORDS SUMMARY | 2025-11-08 17:24 | XMS_ITS | Encounter Summary ---
Author Organization [facility] Address [address] [facility] [address] [place] [address] Phone Care Team Providers Care Doctor'S Assistant Name Role Phone Alex Dorman MD Unavailable [phone] Christa Barros NP Unavailable [phone] Christa Barros NP Primary Care Provider [phone] Christa Barros NP Primary Care Provider [phone]- [phone] Encounter Details Date Type Department Care Team (Late st Contact Info) Description 10/28/2024 Procedure Pass [facility] [address] [place] [address] Social History Tobacco Use Types Packs/Day Years [...] Procedure Pass [facility] [address] [place] [address] 02/14/2026 1:45 PM EDT Appointment [facility] [address] [place] [address] Taz Nair MD [address] [place] [address] [email or web address] 03/16/2026 11:40 AM EDT Office Visit [facility] [address] Floor, [address] [place] [address] Taz Nair MD [address] [place] [address] [email or web address] documented as of this encounter Visit Diagnoses Not on filedocumented in this encounter Additional Health Concerns Infection Onset Date Last Indicated Resolved Time CoV-Risk 03/16/2025 03/16/2025 03/27/2025 1:21 AM EDT Assessment Noted Time PHQ-2 Depression Total Score: 2 01/07/20 11:20 AM EST documented as of this encounter Care Teams Doctor'S Assistant Relationship Specialty Start Date End Date Christa Barros NP [address] [place] [address] [email or web address] PCP - General Internal Medicine 01/07/24 02/15/25 Christa Barros NP [address] [place] [address] [email or web address] PCP - General Nurse Practitioner 02/16/25 Alex Dorman MD [email or web address] Historical LMR Provider 08/27/17 Christa Barros NP [address] [place] [address] [email or web address] Primary Care Physician 01/07/24 02/15/25 documented as of this encounter Additional Source Comments The information contained in this document represents components of the legal health record. It is not the complete legal health record.[facility]
--- OUTSIDE RECORDS SUMMARY | 2025-11-08 17:24 | XMS_ITS | Encounter Summary ---
Author Organization [facility] Address [address] [employer] [facility] [address] [place] [address] Phone Care Team Providers Care Artificial Breeding Technician Name Role Phone Alex Dorman MD Unavailable [phone] Christa Barros NP Unavailable [phone] Christa Barros NP Primary Care Provider [phone] Christa Barros NP Primary Care Provider [phone] Encounter Details Date Type Department Care Team (Late st Contact Info) Description 06/29/2024 Procedure Pass [facility] [address] [place] [address] Social History Tobacco Use Types Packs/Day Years [...] computer) with a working camera? Yes 01/07/2024 Comments No Sex and Gender Information Value [...] [facility] [place] [address] 02/14/2026 1:45 PM EDT Appointment [facility] [place] [address] Taz Nair MD [address] [place] [address] [email or web address] 03/16/2026 11:40 AM EDT Office Visit [facility] [address] Floor, [address] [place] [address] Taz Nair MD [address] [place] [address] [email or web address] documented as of this encounter Visit Diagnoses Not on filedocumented in this encounter Additional Health Concerns Infection Onset Date Last Indicated Resolved Time CoV-Risk 03/16/2025 03/16/2025 03/27/2025 1:21 AM EDT Assessment Noted Time PHQ-2 Depression Total Score: 2 01/07/20 11:20 AM EST documented as of this encounter Care Teams Artificial Breeding Technician Relationship Specialty Start Date End Date Christa Barros NP [address] [place] [address] [email or web address] PCP - General Internal Medicine 01/07/24 02/15/25 Christa Barros NP [address] [place] [address] [email or web address] PCP - General Nurse Practitioner 02/16/25 Alex Dorman MD [email or web address] Historical LMR Provider 08/27/17 Christa Barros NP [address] [place] [address] [email or web address] Primary Care Physician 01/07/24 02/15/25 documented as of this encounter Additional Source Comments The information contained in this document represents components of the legal health record. It is not the complete legal health record.[facility]
--- OUTSIDE RECORDS SUMMARY | 2025-11-08 17:24 | XMS_ITS | Encounter Summary ---
Author Organization [facility] Address [address] [facility] [address] [place] [id number] Phone Care Team Providers Care Underwriting Operations Manager Name Role Phone Alex Doramn MD Unavailable [phone] Christa Barros NP Unavailable [phone] Christa Barros NP Primary Care Provider [phone] Christa Barros NP Primary Care Provider [phone] Encounter Details Date Type Department Care Team (Late st Contact Info) Description 10/19/2024 Procedure Pass [facility] [address] [place] [address] Social History Tobacco Use Types Packs/Day Years [...] Procedure Pass [facility] [address] [place] [address] 02/14/2026 1:45 PM EDT Appointment [facility] [address] [place] [address] Taz Nair MD [address] [place] [address] [email or web address] 03/16/2026 11:40 AM EDT Office Visit [facility] [address], [address] [place] [address] Taz Nair MD [address] [place] [address] [email or web address] documented as of this encounter Visit Diagnoses Not on filedocumented in this encounter Additional Health Concerns Infection Onset Date Last Indicated Resolved Time CoV-Risk 03/16/2025 03/16/2025 03/27/2025 1:21 AM EDT Assessment Noted Time PHQ-2 Depression Total Score: 2 01/07/20 11:20 AM EST documented as of this encounter Care Teams Underwriting Operations Manager Relationship Specialty Start Date End Date Christa Barros NP [address] [place] [id number] [email or web address] PCP - General Internal Medicine 01/07/24 02/15/25 Christa Barros NP [address] [place] [id number] [email or web address] PCP - General Nurse Practitioner 02/16/25 Alex Dorman MD [email or web address] Historical LMR Provider 08/27/17 Christa Barros NP [address] [place] [id number] [email or web address] Primary Care Physician 01/07/24 02/15/25 documented as of this encounter Additional Source Comments The information contained in this document represents components of the legal health record. It is not the complete legal health record.[facility]
--- OUTSIDE RECORDS SUMMARY | 2025-11-08 17:24 | XMS_ITS | Clinical Summary ---
Author Organization [facility] Address [facility] [place] [address] Care Team Providers Care Detail Manager Name Role Phone Unavailable Primary Care Provider Unavailabl e Allergies Active Allergy Reactions Criticality Noted Date Comments Bee Pollen 06/11/2019 Latex Itching 07/21/2019 Penicillins Hives Medium 05/26/2018 Pt states not an allergy Sulfamethoxazole-Trimethopri m Hives 05/26/2018 Medications cholecalciferol (Vitamin D3) 1,000 unit Tablet 3 tablet Active Calcium Citrate 250 mg calcium Tablet 1 tablet Three times a day. Active biotin 5 mg/mL Liquid 1 tablet Active Glucosamine HCl 500 mg Tablet 1 capsule with a meal Active estradioL (ESTRACE) 0.01 % (0.1 mg/gram) Cream 1 gram x 2 weeks then 1 gm 1-3 x per week as needed 6 Active EPINEPHrine 0.3 mg/0.3 mL Auto-Injector USE NEEDED FOR ALLERGY REACTION 1 Active Procto-Med HC 2.5 % cream with perineal applicator See Admin Instructions. 2 Active Lactobacillus acidophilus 10 billion cell Capsule Active Magnesium 200 mg Tablet 2 tablets with a meal Active verapamiL (VERELAN PM) 120 mg Cap,24 hr Sust Release Pellets 240 mg nightly. 2 Active b complex vitamins Capsule See Admin Instructions. Active diazePAM (Valium) 5 mg tabletIndication s:Anxiety Take 0.5 tablets by mouth every 6 hours as needed for Anxiety. 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 Dizziness and giddiness 12/19/2017 Overview (04/03/2022): Last Assessment & Plan: - This has improved significantly since adjustment of her pacemaker. Dr. Rosales to add additional information on this. Device check completed in the office today. We'll continue with device checks in office. Other chest pain 12/19/2017 Overview (04/03/2022): Last Assessment & Plan: - She reports that this isn't resolved, she thinks it was due to indigestion. Her stress test was negative for ischemia. Pacemaker 12/19/2017 Overview (10/25/2023): ENTIRE PACING SYSTEM NOT MRI CONDITIONAL: implanted 12/07/[address] Venkatesh Dill due to CHB Generator: Med[employer]onic [id number] Adapta SN: [id number] Atrial lead: [employer] 1688T-46cm Tendril SDX SN: [id number] RV lead: [employer] 1688T-46cm Tendril SDX SN: [id number] 04/01/2022 Per Ermias Lino RN in [facility] Med-Dizziness and extreme of exercise which was related to pacemaker Wenckebach associated with the upper tracking rate as well as long AV delays which were fixed. After making those changes she has done well without any symptoms. Immunizations Immunization Administration Dates Next Due Covid-19 Monovalent (Moderna Spikevax) 12yrs+ (5463-1468) 02/10/2021,01/13/2021 Covid-19 Monovalent (Moderna Spikevax) 6-11yrs ([id number]) 06/18/2022,10/02/2021 Influenza (Fluzone HD) Quadr ivalent High Dose, Preservative Free 09/30/2023,08/08/2022,08/04/2020 Influenza (Fluzone HD) Triva lent High Dose 08/25/2019,09/28/2018,09/27/2017,09/13,09/08/2015 Influenza Quadrivalent, Pres ervative Free 10/23/2021 Influenza Unspecified Formulation 10/04/2014,11/2009 Pneumococcal 13-Valent Conju gate (Prevnar 13) 11/18/2014 Pneumococcal 20-Valent Conju gate (Prevnar 20) 01/20/2023 Pneumococcal 23-Valent Polys accharide (Pneumovax 23) 12/15/2018,06/24/2015 RSV Recombinant (Arexvy) 10/30/2023 Tdap (Adacel, Boostrix) 07/09/2023,06/20/2021 Zoster Recombinant (ShingRix) 12/10/2023, 023 Family History Medical History Relation Comments Breast Cancer Sister Relation Status Comments Sister Social History Tobacco Use Types Packs/Day Years Used Date Smoking Tobacco: Former Cigarettes Q uit: 1973 Smokeless Tobacco: Never Comments:uses medical mariju randal Alcohol Use Standard Drinks/Week Comments Not Currently 0 (1 standard drink = 0.6 oz pur e alcohol) Comments Unknown Sex and Gender Information Value Date Recorded Sex Assigned at Not on file Legal Sex Female 12:43 PM EDT Gender Identity Not on file Sexual Orientation Not on file Last Filed Vital Signs Vital Sign Reading Time Taken Comments Blood Pressure 140/64 10/25/2023 11:03 AM EST Pulse 80 10/25/2023 11:03 AM EST Temperature 36.8 C (98.3 F) 07/23/2022 1:02 PM EDT Respiratory Rate 18 05/07/2022 3:02 PM EDT Oxygen Saturation 99% 07/31/2023 2:46 PM EDT Inhaled Oxygen Concentration - - Weight 49.9 kg (110 lb) 10/25/2023 11:03 AM EST Height 161 cm (5' 3.39 ) 07/31/2023 2:46 PM EDT Body Mass Index 19.25 07/31/2023 2:46 PM EDT Plan of Treatment Health Maintenance Due Date Last Done Comments Hepatitis C Screening 1966 Advance Directive 2003 Covid-19 Vaccine (5 - 2024-2 6 season) 2025 06/18/2022, 10/02/2021, 02/10/2021, Additional history exists Influenza (Flu) vaccine (1 o f 1 - Influenza standard series) 07/12/2025 09/30/2023, 08/08/2022, 10/23/2021, Additional history exists Tetanus/Diphtheria/Pertussis Vaccines (3 - Td or Tdap) 07/09/2033 07/09/2023, 06/20/2021 Bone Density Scan 08/02/2037 08/02/2022 Colonoscopy Discontinued 05/07/2022, 04/12, 12/15/2012 Colorectal Cancer Screening Discontinued Sigmoidoscopy (10 year) with FIT yearly Discontinued 05/07/2022, 05/07/2022 HPV test Discontinued 07/04/2022 PAP Smear Discontinued 07/04/2022 Pneumoccocal Vaccine: 50+ Completed 2022, 12/15/2018, 06/24/2015, Additional history exists Lipid Screening Discontinued 09/02/2023, 08/13/2022 RSV Vaccine Completed 10/30/2023 Breast Cancer screening Discontinued 11/12/19, 04/25/2022, 03/22/2021 Zoster vaccine Completed 12/10/2023, 04/25/2023 CT Colonography Discontinued FIT DNA Discontinued FIT Discontinued Sigmoidoscopy Discontinued Procedures Procedure Name Priority Date/Time Associated Diagnosis Comments MAMMO SCREENING CAD AND ARRON BILATERAL Routine 11/12/2023 2:14 PM EST Breast cancer screening by mammogram EXTERNAL LIPID LAB RESULTS PANEL Routine 09/02/2023 DXA AXIAL SKELETON (FOREARM, HIPS, PELVIS AND/OR SPINE) (STANDARD) Routine 08/02/2022 2:02 PM EDT Asymptomatic postmenopausal state HPV Routine 07/04/2022 1:40 PM EDT MAILROOM COORDINATOR CYTOLOGY FINAL REPORT Routine 07/04/2022 1:40 PM EDT COLONOSCOPY Routine 05/07/2022 1:49 PM EDT from Last 3 Months or Most Recently Relevant to Health Maintenance Results * Mammo Screening Cad and Arron Bilateral (11/12/2023 2:14 PM EST) Anatomical Region Laterality Modality Breast Bilateral Mammography Impressions 11/12/2023 3:19 PM EST No mammographic evidence of malignancy. RECOMMENDATION: Recommend routine annual screening. A result letter has been sent to this patient by the [facility]. BIRADS BI-RADS Category 2: Benign Findings * Regular screening mammograms starting at age 40 reduces the risk of from breast cancer. * All screening tests have both risks and benefits. These risks and benefits should be assessed for each individual patient through discussion with their provider to determine their preferred breast cancer screening schedule. * Women should report any breast changes to a health care provider right away. * Some women, because of their family history, a genetic tendency, or other factors, should be screened with annual breast MRI as well as with mammograms. (The number of women who fall into this category is very small). Patients and health care providers should discuss the history of each patient to decide if earlier screening and/or breast MRI are appropriate. * Screening should continue as long as a woman is in good health and is expected to live 10 years or longer. * Screening mammography may not detect 10-15% of breast cancers. Thank you for letting us participate in the care of this patient. If you are a health care provider and have any questions regarding this report, please contact the number below. For patients who have questions please contact the health wound care rn that requested your imaging first. Electronically signed by: PAUL MACARIO MD, [facility] ([phone]), at 11/12/2023 3:19 PM Narrative 11/12/2023 3:19 PM EST EXAMINATION: MAMMO SCREENING CAD AND ARRON BILATERAL CLINICAL HISTORY: Screening mammogram TECHNIQUE: CC and MLO views were obtained of each breast. 3- D tomosynthesis images were also obtained. Computer aided detection was used. COMPARISON: The study is compared with prior images. FINDINGS: There are scattered areas of fibroglandular density. There are no suspicious microcalcifications, masses, or areas of distortion. Cesilia Romero CN IMG MAMMO ORDERABLES Final Result * Lipid External Results (09/02/2023) Cholesterol, Total 207 Comment:See scanned records HDL Cholesterol 91 LDL Cholesterol 100 Triglyceride 72 Historical Provider MD POINT OF CARE TEST ORDERA BLES Final Result * DXA Central Spine, Hip, and/or Whole Body (Generic) (08/02/2022 2:02 PM EDT) Anatomical Region Laterality Modality C-spine, Hip N/A Other 08/02/2022 Narrative 08/06/2022 4:39 PM EDT Bone Density Report Name: Sherita Mccord Age: 71 Sex: Female Ethnicity: White Date of : 1950 Indication: postmenopausal; screening for osteoporosis; Referring Provider: CESILIA ROMERO Study: Bone densitometry was performed. Quality of Study: Adequate for interpretation. Exam Date: August 02, 2022 Accession number: [id number] Bone Density: Region BMD T-score Z-score Classification AP Spine (L1-L4) 0.937 -1.0 1.3 Normal Femoral Neck (Left) 0.640 -1.9 0.1 Osteopenia Total Hip (Left) 0.877 -0.5 1.2 Normal 1/3 Forearm (Right) 0.537 -2.6 -0.2 Osteoporosis World Health Organization criteria for BMD impression classify patients as: Normal (T-score at or above -1.0), Osteopenia (T-score between -1.0 and -2.5), or Osteoporosis (T-score at or below -2.5). 10-year Fracture Risk(1): Major Osteoporotic Fracture 10% Hip Fracture 2.4% Reported Risk Factors: [place] (), Neck BMD=0.640, BMI=19.9 (1) FRAX(R) Version 3.08. Fracture probability calculated for an untreated patient. Fracture probability may be lower if the patient has received treatment. Impression: The patient has osteoporosis, based on the Right Third Radius T-score. The patient has an estimated ten-year risk of hip fracture of 2.4% and an estimated ten-year risk of major fracture of 10%, based on the WHO FRAX algorithm. Discussion: INCREASED RISK OF FRACTURE. BONE DENSITY IS UNDESIRABLY LOW AT ONE OR MORE SKELETAL SITES, CONSISTENT WITH POSTMENOPAUSAL OSTEOPOROSIS. This patient's lowest T-score meets the World Health Organization's (WHO) criteria for osteoporosis at one or more sites (T-score -2.5 or below). In untreated patients, the risk of osteoporotic fracture increases approximately two-fold for each 1.0 SD decrease in T-score. Low bone density is not the only risk factor for fracture; also consider factors such as patient's age, frailty or poor health, risk of falling, risk of injury, previous osteoporotic fracture, family history of osteoporosis, cigarette smoking, low body weight, etc. Not everyone with low bone mineral density has osteoporosis; osteomalacia and other metabolic bone disorders should also be considered. Patients who have osteoporosis should be evaluated for specific diseases and conditions (secondary causes) that may cause or contribute to bone loss. The [place] [employer] Endocrinologists (AACE) and National Osteoporosis Foundation (NOF) recommend pharmacologic intervention for all postmenopausal women whose T-score is in this range. The patient should follow a healthful lifestyle (good nutrition with adequate calcium and vitamin D, and appropriate weight-bearing exercise). Follow-Up: Consider a repeat BMD exam in 2 years or sooner if medically necessary, to reassess this patient's status. Reported by: Britney Morales DO CCD on 08/03/2022 9:03:00 PM. Procedure Note Britney Morales DO - 08/07/2022 Bone Density Report Name: Sherita Mccord Age: 71 Sex: Female Ethnicity: White Date of : 1950 Indication: postmenopausal; screening for osteoporosis; Referring Provider: CESILIA ROMERO Study: Bone densitometry was performed. Quality of Study: Adequate for interpretation. Exam Date: August 02, 2022 Accession number: [id number] Bone Density: Region BMD T-score Z-score Classification AP Spine (L1-L4) 0.937 -1.0 1.3 Normal Femoral Neck (Left) 0.640 -1.9 0.1 Osteopenia Total Hip (Left) 0.877 -0.5 1.2 Normal 1/3 Forearm (Right) 0.537 -2.6 -0.2 Osteoporosis World Health Organization criteria for BMD impression classify patients as: Normal (T-score at or above -1.0), Osteopenia (T-score between -1.0 and -2.5), or Osteoporosis (T-score at or below -2.5). 10-year Fracture Risk(1): Major Osteoporotic Fracture 10% Hip Fracture 2.4% Reported Risk Factors: [place] (), Neck BMD=0.640, BMI=19.9 (1) FRAX(R) Version 3.08. Fracture probability calculated for an untreated patient. Fracture probability may be lower if the patient has received treatment. Impression: The patient has osteoporosis, based on the Right Third Radius T-score. The patient has an estimated ten-year risk of hip fracture of 2.4% and an estimated ten-year risk of major fracture of 10%, based on the WHO FRAX algorithm. Discussion: INCREASED RISK OF FRACTURE. BONE DENSITY IS UNDESIRABLY LOW AT ONE OR MORE SKELETAL SITES, CONSISTENT WITH POSTMENOPAUSAL OSTEOPOROSIS. This patient's lowest T-score meets the World Health Organization's (WHO) criteria for osteoporosis at one or more sites (T-score -2.5 or below). In untreated patients, the risk of osteoporotic fracture increases approximately two-fold for each 1.0 SD decrease in T-score. Low bone density is not the only risk factor for fracture; also consider factors such as patient's age, frailty or poor health, risk of falling, risk of injury, previous osteoporotic fracture, family history of osteoporosis, cigarette smoking, low body weight, etc. Not everyone with low bone mineral density has osteoporosis; osteomalacia and other metabolic bone disorders should also be considered. Patients who have osteoporosis should be evaluated for specific diseases and conditions (secondary causes) that may cause or contribute to bone loss. The [place] [employer] of Clinical Endocrinologists (AACE) and National Osteoporosis Foundation (NOF) recommend pharmacologic intervention for all postmenopausal women whose T-score is in this range. The patient should follow a healthful lifestyle (good nutrition with adequate calcium and vitamin D, and appropriate weight-bearing exercise). Follow-Up: Consider a repeat BMD exam in 2 years or sooner if medically necessary, to reassess this patient's status. Reported by: Britneymichele Morales DO CCD on 08/03/2022 9:03:00 PM. Cesilia Romero CNM IMG DEXA ORDERABLES Final R esult * HPV (07/04/2022 1:40 PM EDT) HPV16 NEGATIVE NEGATIVE [facility] HPV 18 NEGATIVE NEGATIVE [facility] HPV Other HR NEGATIVE NEGATIVE [facility] HPV Interpretation See Comment [facility] Comment: NEGATIVE for high-risk HPV *. *Testing negative for high risk HPV means that high risk HPV DNA is not detected in the specimen for the following 14 types tested: types 16, 18, 31, 33, 35, 39, 45, 51, 52, 56, 58, 59, 66, and 68. The test is not intended to detect low risk HPV types. Method: Yulia diane HPV test (FDA-approved for clinical use) Specimen: HPV Testing Cytology Liquid Based Prep This test is validated for cervical specimens only for use in cervical cancer screening. Other uses or specimen types are not validated/recommended. Cervical 07/04/2022 1:40 PM EDT 07/04/2022 9:42 PM EDT Narrative Resulting Agency Comment Spec In Lab Cesilia ROBERT PATHOLOGY/CYTOLOGY ORDERABL ES Final Result [facility] [place] [address] * Customer Care Assistant Cytology Final Report (07/04/2022 1:40 PM EDT) Customer Care Assistant Cytology Final Report [id number] Location: [facility] The signing pathologist has (i) examined the relevant preparation(s) for the specimen(s) and (ii) rendered or confirmed the diagnosis(es). . Customer Care Assistant Final DIAGNOSIS Normal Negative for intraepithelial lesion or malignancy (NILM). For consensus guidelines for the management of cervical cancer screening test results, please see: http://www.asccp. org . Electronically signed by: Demetrius WOOD(ASCP)Betzaida Verified: 07/09/2022 15:27 Power Plant Operator Apprentice Performed at: -[facility] [place], [place], [place] DISCUSSION Atrophic pattern sample. HPV RESULTS HPV16 (Result) Negative HPV18 (Result) Negative HPVOHR (Result) Negative HPV (Interpretation) See Below HPV (Interpretation) Text: NEGATIVE for high-risk HPV *. *Testing negative for high risk HPV means that high risk HPV DNA is not detected in the specimen for the following 14 types tested: types 16, 18, 31, 33, 35, 39, 45, 51, 52, 56, 58, 59, 66, and 68. The test is not intended to detect low risk HPV types. Method: Yulia diane HPV test (FDA-approved for clinical use) Specimen: HPV Testing - Cytology Liquid Based Prep This test is validated for cervical specimens only for use in cervical cancer screening. Other uses or specimen types are not validated/rec ommended. The Yulia diane HPV test was validated, performed and results reported through the [facility] ([facility]) at [facility] [place]. - Neeraj Chow, PhD, [facility], Director-[facility] STATEMENT OF ADEQUACY Specimen submitted is satisfactory for evaluation. No endocervical component present. Note: Initial cross-sectional studies suggested that MARIANA cells were more commonly identified when an endocervical component was present, however subsequent longitudinal studies fail to show that women lacking an endocervical component in a Pap smear are at increased risk for MARIANA. CLINICAL INFORMATION HPV Option: Concurrent HPV and Pap CT/NG Option: No Preparation: Liquid based Pap Specimen Source: Cervical/Endocerv ical LMP: Postmenopausal Hysterectomy: No : No : No I.U.D.: No . CLINICAL INFORMATION Pelvic Radiation: No Hist Abnl Pap/Biopsy: No Prior MAILROOM COORDINATOR Therapy: No Hist of HPV Vaccine: No ICD Diagnosis: Z12.4 Encounter for screening for malignant neoplasm of cervix Clinical Data, Significant Therapy and Clinical Impression : _ This Pap Test has been evaluated with the assistance of the [employer] Pap Test Imaging System. Note: The Pap test is a screening test for cervical cancer with an inherent false-negative rate dependent upon several variables. For further information please contact the [facility] Laboratory. Reference: Eva SHIN. Outreach Liaison of Pap Smear Results. In: Mari BS, Fran HH, ed. The Pap Smear. [facility] [place]: Surinder, 2002: 71-77. [facility] 07/04/2022 1:40 PM EDT us Cesilia ROBERT PATHOLOGY/CYTOLOGY ORDERABL ES Final Result [facility] [place] [address] * COLONOSCOPY (05/07/2022 1:49 PM EDT) COLONOSCOPY Patient Name: Sherita Mccord Procedure Date: 05/07/2022 1:49 PM Attending MD: Brayan Saavedra MD Date of : 1950 Order #: [id number] Age: 71 Instrument Name: [id number] Procedure: Colonoscopy Indications: Rectal bleeding, Abdominal pain Providers: Brayan Saavedra MD, Arlette Corral RN, Rosario Angeles Referring MD: Medicines: Monitored Anesthesia Care Complications: No immediate complications. Procedure: Pre-Anesthesia Assessment: - Prior to the procedure, a History and Physical was performed, and patient medications, allergies and sensitivities were reviewed. The patient's tolerance of previous anesthesia was reviewed. The procedure, indications, benefits, risks and alternatives were explained to the patient. Specifically discussed were potential complications including, but not limited to, bleeding, perforation, infection, missing a cancer, and adverse medication reactions. The patient was placed in the left lateral decubitus position, and a digital rectal exam was performed. The Colonoscope was inserted in the anus and under direct visualization, advanced to the terminal ileum. Careful inspection was made as the colonoscope was withdrawn. The colonoscopy was performed without difficulty. The patient tolerated the procedure well. The quality of the bowel preparation was good. Scope Withdrawal Time: 0 hours 7 minutes 9 seconds Findings: The perianal and digital rectal examinations were normal. The colon was moderately tortuous. Advancing the scope required applying abdominal pressure. Internal hemorrhoids were found during retroflexion. The hemorrhoids were small. The exam was otherwise without abnormality. Normal mucosa was found in the colon. The terminal ileum appeared normal. Impression: - Tortuous colon. - Internal hemorrhoids. - The examination was otherwise normal. - Normal mucosa in the entire examined colon. - The examined portion of the ileum was normal. - No specimens collected. Recommendation: - Discharge patient to home. - Resume previous diet. - Continue present medications. - Repeat colonoscopy in 10 years for screening purposes. Procedure Code(s): --- Professional --- 97673, Colonoscopy, flexible; diagnostic, including collection of specimen(s) by brushing or washing, when performed (separate procedure) Diagnosis Code(s): --- Professional --- K64.8, Other hemorrhoids K62.5, Hemorrhage of anus and rectum R10.9, Unspecified abdominal pain Q43.8, Other specified congenital malformations of intestine --- Technical --- K64.8, Other hemorrhoids K62.5, Hemorrhage of anus and rectum R10.9, Unspecified abdominal pain Q43.8, Other specified congenital malformations of intestine CPT copyright 2020 [employer]. All rights reserved. The codes documented in this report are preliminary and upon limehouse worker review may be revised to meet current compliance requirements. Brayan Saavedra MD ____ Brayan Saavedra MD 05/07/2022 3:01:41 PM This report has been signed electronically. Number of Addenda: 0 PROVATION 05/07/2022 1:49 PM EDT us Brayan Saavedra MD GENERAL SURGICAL ORDERABLES Final Result PROVATION from Last 3 Months or Most Recently Relevant to Health Maintenance Insurance [employer] MEDICARE
--- OUTSIDE RECORDS SUMMARY | 2025-11-08 17:24 | XMS_ITS | Clinical Summary ---
Author Organization Kirsten Garza [facility] Address [address] [place] [address] Care Team Providers Care Improvement Spec Name Role Phone Ambrosio Navas Unavailable [phone] Allergies Active Allergy Reactions Criticality Noted Date Comments Erythromycin Hives Penicillins Hives Sulfamethoxazole-Trimethopr im Rash Verapamil Arrhythmia Level of certainty: Moderately Certain Medications calcium 250 mg tablet Tablet oral 02/04/2009 Active flaxseed oiL 1,000 mg cap Capsule oral 02/04/2009 Act jonny genistein-cit Zn bisgly-vit D3 (FOSTEUM) 27-20-200 mg-mg-unit cap 1 Capsule(s) by mouth twice a day 02/04/2009 Active glucosamine sulfate 2KCl 1,000 mg Tab 1 Tablet(s) by mouth qday 02/04/2009 Active verapamil SR (CALAN-SR) 120 MG SR tablet 1 tablet extended release(s) by mouth Once daily 90 capsule 3 02/27/2017 Active Social History Tobacco Use Types Packs/Day Years Used Date Smoking Tobacco: Never Assessed Comments Unknown Sex and Gender Information Value Date Recorded Sex Assigned at Not on file Legal Sex Female 4:32 PM EST Gender Identity Not on file Sexual Orientation Not on file Last Filed Vital Signs Vital Sign Reading Time Taken Comments Blood Pressure - - Pulse - - Temperature - - Respiratory Rate - - Oxygen Saturation - - Inhaled Oxygen Concentration - - Weight 51.9 kg (114 lb 6.4 oz) 05/08/2021 12:00 AM EDT Legacy value: 114.4 lbs; Method: With Clothes; With Shoes Height - - Body Mass Index - - Plan of Treatment Health Maintenance Due Date Last Done Comments Blood Pressure 1948 Depression Screening 1960 Hepatitis C Screening 1966 DTaP,Tdap,and Td Vaccines (1 - Tdap) 1967 Pneumococcal Vaccine: 50+ Ye ars (1 of 1 - PCV) 1998 Zoster Vaccine (1 of 2) 1998 Osteoporosis Screening 2013 COVID-19 Vaccine (1 - 2024-2 6 season) 2025 Influenza Vaccine (#1) 2025 Meningococcal B Vaccines Aged Out No longer eligible based on patient's age to complete this topic Meningococcal Vaccines Aged Out No lo nger eligible based on patient's age to complete this topic Care Teams Improvement Spec Relationship Specialty Start Date End Date Ambrosio Navas [address] [facility] [address] [place] [address] PCP - Insurance Assigned PCP 09/25/23
--- OUTSIDE RECORDS SUMMARY | 2025-11-08 17:24 | XMS_ITS | Encounter Summary ---
Author Organization [facility] Address [address] [place] [address] Phone Care Team Providers Care Talent Assistant Name Role Phone Alex Dorman MD Unavailable [phone] Christa Barros NP Primary Care Provider [phone] Encounter Details Date Type Department Care Team (Late st Contact Info) Description 07/12/2025 Procedure Pass [facility], Ct Scan - [address] [address] Social History Tobacco Use Types Packs/Day Years [...] Procedure Pass [facility] [address] [place] [address] 02/14/2026 1:45 PM EDT Appointment [facility] [address] [place] [address] Taz Nair MD [address] [place] [address] 03/16/2026 11:40 AM EDT Office Visit [facility] [address] [facility] [address], [address] [place] [address] Taz Nair MD [address] [place] [address] [email or web address] documented as of this encounter Visit Diagnoses Not on filedocumented in this encounter Additional Health Concerns Assessment Noted Time PHQ-2 Depression Total Score: 2 01/07/20 24 11:20 AM EST documented as of this encounter Care Teams Talent Assistant Relationship Specialty Start Date End Date Christa Barros NP [address] [place] [address] [address] [place] [address] [email or web address] PCP - General Nurse Practitioner 02/16/25 Alex Dorman MD [email or web address] Historical LMR Provider 08/27/17 documented as of this encounter Additional Source Comments The information contained in this document represents components of the legal health record. It is not the complete legal health record.[facility]
--- OUTSIDE RECORDS SUMMARY | 2025-11-08 17:24 | XMS_ITS | Encounter Summary ---
Author Organization [facility] Address [address] [facility] [address] [place] [address] Phone Care Team Providers Care Meteorological Observer Name Role Phone Ana Laura Dorman MD Unavailable Christa Barros NP Unavailable [phone] Maryanne Gresham Unavailable [email or web address] Anahy Cisneros COMPUTER CONSULTANT Unavailable [phone] Ambrosio Navas MD Unavailable [phone] Leonel Haider SONAR TECHNICIAN Unavailable Yancy Rees MD Unavailable [phone] Rambo Perez MD Unavailable Christa Barros NP Primary Care Provider + Ambrosio Navas MD Unavailable [phone] Ambrosio Navas MD Primary Care Provider [phone] Unknown, Unknown Primary Care Provider UnaChrista Sheppard NP Primary Care Provider + Christa Barros NP Primary Care Provider + Encounter Details Date Type Department Care Team (Late st Contact Info) Description 01/20/2019 Ancillary Orders [facility] [address] [facility] [address] [place] [address] Christa Barros NP [address] [facility] [address] [place] [phone] [email or web address] Breast screening Social History Tobacco Use Types [...] Procedure Pass [facility] [place] [address] 02/14/2026 1:45 PM EDT Appointment [facility] [place] [address] Taz Nair MD [address] [place] [address] 03/16/2026 11:40 AM EDT Office Visit [facility] [address] [place] [address] Taz Nair MD [address] [place] [phone] documented as of this encounter Results * BI MAMMOGRAM SCREENING WITH TOMOSYNTHESIS WITH CAD (BILATERAL) (02/11/2019 12:27 PM EDT) Anatomical Region Laterality Modality Breast Left, Breast Right, Breast Bilateral Bila teral Mammography 02/11/2019 1:15 PM EDT Impressions 02/11/2019 1:18 PM EDT No mammographic change indicative of malignancy. Annual screening is recommended in light of family history. BI-RADS CATEGORY: 2 - Benign finding. DENSITY: The breast tissue is heterogeneously dense, an appearance which lowers the sensitivity of mammography. POS -[id number] Narrative 02/11/2019 1:18 PM EDT Bilateral full-field digital screening mammography is obtained and read in conjunction with computer-aided detection. Tomosynthesis as well as 2-D C view imaging of both breasts in two planes also obtained. Comparison made to multiple prior, most recent 02/05/2018, and most remote 09/28/2013. No dominant mass, architectural distortion, worrisome asymmetry, or suspicious calcification is identified. No skin or nipple finding of concern is appreciated. Vascular and scattered calcification appears stable. Pacemaker again noted on the right. Procedure Note Ana Laura Knott MD - 02/11/2019 Bilateral full-field digital screening mammography is obtained and read inconjunction with computer-aided detection. Tomosynthesis as well as 2-D Cview imaging of both breasts in two planes also obtained. Comparison madeto multiple prior, most recent 02/05/2018, and most remote 09/28/2013. No dominant mass, architectural distortion, worrisome asymmetry, orsuspicious calcification is identified. No skin or nipple finding ofconcern is appreciated. Vascular and scattered calcification appearsstable. Pacemaker again noted on the right. IMPRESSION: No mammographic change indicative of malignancy. Annual screening isrecommended in light of family history. BI-RADS CATEGORY: 2 - Benign finding. DENSITY: The breast tissue is heterogeneously dense, an appearance whichlowers the sensitivity of mammography. POS -[id number] Christa Barros NP IMG MG EXAMS Final Resu lt documented in this encounter Visit Diagnoses Diagnosis Breast screening Breast screening, unspecified Breast screening Breast screening, unspecified documented in this encounter Additional Health Concerns Infection Onset Date Last Indicated Resolved Time CoV-Risk 06/27/2020 06/27/202007/11/2020 1:24 AM EDT CoV-Risk 03/16/2025 03/16/2025 03/27/2025 1:21 AM EDT documented as of this encounter Care Teams Meteorological Observer Relationship Specialty Start Date End Date Christa Barros NP [address] [place] [phone] [email or web address] PCP - General Internal Medicine 10/24/18 06/19/21 Ambrosio Navas MD [address] [place] [address] [email or web address] PCP - General Internal Medicine 06/20/21 01/29/22 Unknown, Nam, MD PCP - General 01/30/22 01/06/24 Christa Barros NP [address] [place] [phone] [email or web address] PCP - General Internal Medicine 01/07/24 02/15/25 Christa Barros NP [address] [place] [phone] [email or web address] PCP - General Nurse Practitioner 02/16/25 Ana Laura Dorman MD [email or web address] Historical LMR Provider 08/27/17 Christa Barros NP [address] [place] [phone] [email or web address] Primary Care Physician 01/07/24 02/15/25 Maryanne Gresham PA Historical LMR Provider 08/27/17 11/18/21 Anahy Cisneros CNP [address] [place] [address] Historical LMR Provider 08/27/17 4 Ambrosio Navas MD [address] [place] [address] Historical LMR Provider 08/27/17 4 Leonel Haider, SONAR TECHNICIAN [address] [place] [phone] Historical LMR Provider 08/27/17 2 Yancy Rees MD [address] [place] [address] Historical LMR Provider 08/27/17 2 Rambo Perez MD [address] [place] [address] Historical LMR Provider 08/27/17 Ambrosio Navas MD [address] [place] [phone] [email or web address] Insurance Assigned Provider Internal Medicine 09/30/19 01/06/24 documented as of this encounter Additional Source Comments The information contained in this document represents components of the legal health record. It is not the complete legal health record.[facility]
== END 2025-11-08 16:11 | disposition home or self-care (01) ==
LOC: HO.HMCH 15:09
PROVIDERS: PCP Student in an Organized Health Care Education/Training Program; Visit Provider Student in an Organized Health Care Education/Training Program
DX: M81.0 Age-related osteoporosis without current pathological fracture (principal); G43.909 Migraine, unspecified, not intractable, without status migrainosus; I35.0 Nonrheumatic aortic (valve) stenosis; F41.9 Anxiety disorder, unspecified

== ENCOUNTER → 2025-11-08 15:08 | Outpatient (BNVA) | payer MEDICARE, SELFPAY | PROVIDERS: Visit Provider Student in an Organized Health Care Education/Training Program | DX: M81.0 Age-related osteoporosis without current pathological fracture (principal); G43.909 Migraine, unspecified, not intractable, without status migrainosus; I35.0 Nonrheumatic aortic (valve) stenosis; F41.9 Anxiety disorder, unspecified | CPT/HCPCS: 96127; 99202 ==